=== PATIENT | female | born 1935 | race Caucasian/White ===

== ENCOUNTER 2020-01-13 17:46 | Emergency (ER) | payer MEDICARE, BC ==
[2020-01-13] MEDS ORDERED: Sodium Chloride 0.9% 1,000 ML IV ONE (18:28)
[2020-01-13] MEDS ORDERED: Sodium Chloride 0.9% 10 ML Syringe FLUSH PRN (18:28)
--- NOTE | 2020-01-13 18:36 | EDM.PDOC ---
ED HPI GENERAL MEDICAL PROBLEM - General Chief Complaint: Behavioral/Psych Stated Complaint: DIABETIC COMPLAINT Time Seen by Provider: 01/13/20 18:08 Source of Information: Reports: Patient, Family (daughter), RN Notes Reviewed History Limitations: Reports: No Limitations - History of Present Illness INITIAL COMMENTS - FREE TEXT/NARRATIVE: Patient is an 84-year-old female who is brought into the ED by her daughter for the evaluation of a few different complaints. The patient thought that she was having a blood sugar issue. Apparently she was found outside her house, by her neighbors. Patient states she was sitting outside because there is people in her house and she is afraid of them, so she has been staying in her garage. The daughter did go into the house to check to see if there is anyone in the house, and she states there was no one there. The daughter notes that the patient's never had issues with this before, with any sort of hallucinations or otherwise. She has no psych history. The daughter notes that they talked on Sunday, and everything seemed to be fine, but she was having these nightmares, the daughter is wondering if it is not the nightmares coming to life for the patient. The patient notes that this is been going on for the last couple days. She is diabetic that takes insulin, has not been taking her diabetic medications. Blood sugar is 138 at time of triage. Patient states she is seeing things that are not there, she states there are men in her house. She states that they talk to her, but she cannot specifically tell me what they are saying to her. She does become a little bit agitated when she is told that there is no one there. Patient herself states that the police were at her house, and arrested some people and put them in alf but she was not sure how long they would be there. She is denying any fevers or chills, cough/shortness of breath, dysuria, frequency or urgency. She is not having any nausea vomiting or diarrhea. She denies any falls at this time. The daughter also stated that when she checked her mother's house, that it looked like a tornado had gone through it. She states it was not like that this weekend. - Related Data Allergies Allergy/AdvReac Type Severity Reaction Status Date / Time No Known Allergies Allergy Verified 01/13/20 18:07 Past Medical History HEENT History: Reports: Impaired Vision Endocrine/Metabolic History: Reports: Diabetes, Type I Social & Family History - Tobacco Use Smoking Status *Q: Never Smoker ED ROS GENERAL - Review of Systems Review Of Systems: Comprehensive ROS is negative, except as noted in HPI. - Physical Exam Exam: See Below Exam Limited By: No Limitations General Appearance: Alert, WD/WN, No Apparent Distress Eye Exam: Bilateral Eye: EOMI, Normal Inspection, PERRL Throat/Mouth: Normal Inspection Head Exam: Atraumatic Neck: Normal Inspection Respiratory/Chest: No Respiratory Distress, Lungs Clear, Normal Breath Sounds, No Accessory Muscle Use, Chest Non-Tender Cardiovascular: Normal Peripheral Pulses, Regular Rate, Rhythm, No Murmur GI/Abdominal: Normal Bowel Sounds, Soft, No Distention, No Mass, Tender (suprapubid tenderness mainly) Neuro Exam (Abbreviated): Alert, Oriented (to person/place/time), No Mot or/Sensory Deficits Back Exam: Normal Inspection, Full Range of Motion Extremities: Normal Inspection, Normal Capillary Refill Psychiatric: Normal Affect, Normal Mood, Other (pt does talk about how there are people in her house that she is afraid of; she states that she has not been eating/drinking or taking medications d/t the people in her house. States that they are men, but could not tell me what they were telling her.) Skin Exam: Warm, Dry, Intact, Normal Color, No Rash EKG INTERPRETATION EKG Date: 01/13/20 Time: 18:33 Rhythm: NSR (sinus tach) Rate (Beats/Min): 108 [place]: Normal P-Wave: Present QRS: Normal ST-T: Normal QT: Normal EKG Interpretation Comments: No obvious ischemia or acute ST changes noted, reviewed by myself and Dr. Wallace. Course - Vital Signs Last Recorded V/S: Last Vital Signs Temp 97.2 F 01/13/20 18:03 Pulse 109 H 01/13/20 18:03 Resp 16 01/13/20 18:03 BP 161/92 H 01/13/20 18:03 Pulse Ox 91 L 01/13/20 18:03 - Orders/Labs/Meds Orders: Active Orders 24 hr Category Date Time Status EKG Documentation Completion [RC] STAT Care 01/13/20 18:25 Active Peripheral IV Care [RC] . DIRECTED Care 01/13/20 18:28 Active ACETAMINOPHEN [CHEM] Stat Lab 01/13/20 18:35 Results COMPREHENSIVE METABOLIC PN,CMP [CHEM] Stat Lab 01/13/20 18:35 Results DRUG SCREEN, URINE [URCHEM] Stat Lab 01/13/20 18:25 Ordered ETHANOL BLOOD MEDICAL [CHEM] Stat Lab 01/13/20 18:35 Results OSMOLALITY,SERUM [CHEM] Stat Lab 01/13/20 18:35 Results TSH [CHEM] Stat Lab 01/13/20 18:35 Results UA W/MICROSCOPIC [URIN] Stat Lab 01/13/20 18:27 Ordered Sodium Chloride 0.9% [Saline Flush] Med 01/13/20 18:28 Active 10 ml FLUSH ASDIRECTED PRN Peripheral IV Insertion Adult [OM.PC] Routine Oth 01/13/20 18:28 Ordered Medication Orders Sodium Chloride (Saline Flush) 10 ml FLUSH ASDIRECTED PRN PRN Reason: Keep Vein Open Last Admin: 01/13/20 18:47 Dose: 10 ml Documented by: WANDA Labs: Laboratory Tests 01/13/20 01/13/20 01/13/20 Range/Units 18:01 18:35 18:35 WBC 12.12 H (3.98-10.04) K/mm3 RBC 5.06 (3.98-5.22) M/mm3 Hgb 14.8 (11.2-15.7) gm/dl Hct 44.6 (34.1-44.9) % MCV 88.1 (79.4-94.8) fl MCH 29.2 (25.6-32.2) pg MCHC 33.2 (32.2-35.5) g/dl RDW Std Deviation 44.0 (36.4-46.3) fL Plt Count 307 (182-369) K/mm3 MPV 9.0 L (9.4-12.3) fl Neutrophils % (Manual) 87 H (40-60) % Band Neutrophils % 0 (0-10) % Lymphocytes % (Manual) 11 L (20-40) % Atypical Lymphs % 0 % Monocytes % (Manual) 1 L (2-10) % Eosinophils % (Manual) 1 (0.7-5.8) % Basophils % (Manual) 0 L (0.1-1.2) Platelet Estimate Adequate Poikilocytosis 1+ slight Ovalocytes 1+ slight RBC Morph Comment Not Reportable Sodium 139 (136-145) mEq/L Potassium 3.9 (3.5-5.1) mEq/L Chloride 102 (98-107) mEq/L Carbon Dioxide 24 (21-32) mEq/L Anion Gap 16.9 H (5-15) BUN 32 H (7-18) mg/dL Creatinine 1.4 H (0.55-1.02) mg/dL Est Cr Clr Drug Dosing 26.92 mL/min Estimated GFR (MDRD) 36 (>60) mL/min BUN/Creatinine Ratio 22.9 H (14-18) Glucose 138 H (83-115) mg/dL POC Glucose 138 H (83-110) mg/dL Calcium 9.0 (8.5-10.1) mg/dL Total Bilirubin 2.0 H (0.2-1.0) mg/dL AST 38 H (15-37) U/L ALT 29 (14-59) U/L Alkaline Phosphatase 79 (46-116) U/L Total Protein 7.1 (6.4-8.2) g/dl Albumin 3.9 (3.4-5.0) g/dl Globulin 3.2 gm/dL Albumin/Globulin Ratio 1.2 (1-2) TSH 3rd Generation 3.003 (0.358-3.74) uIU/mL Salicylates (2.8-20) mg/dL Acetaminophen 0 L (10-30) ug/mL Ethyl Alcohol 0.00 (0.00) gm% 01/13/20 Range/Units 18:35 WBC (3.98-10.04) K/mm3 RBC (3.98-5.22) M/mm3 Hgb (11.2-15.7) gm/dl Hct (34.1-44.9) % MCV (79.4-94.8) fl MCH (25.6-32.2) pg MCHC (32.2-35.5) g/dl RDW Std Deviation (36.4-46.3) fL Plt Count (182-369) K/mm3 MPV (9.4-12.3) fl Neutrophils % (Manual) (40-60) % Band Neutrophils % (0-10) % Lymphocytes % (Manual) (20-40) % Atypical Lymphs % % Monocytes % (Manual) (2-10) % Eosinophils % (Manual) (0.7-5.8) % Basophils % (Manual) (0.1-1.2) Platelet Estimate Poikilocytosis Ovalocytes RBC Morph Comment Sodium (136-145) mEq/L Potassium (3.5-5.1) mEq/L Chloride (98-107) mEq/L Carbon Dioxide (21-32) mEq/L Anion Gap (5-15) BUN (7-18) mg/dL Creatinine (0.55-1.02) mg/dL Est Cr Clr Drug Dosing mL/min Estimated GFR (MDRD) (>60) mL/min BUN/Creatinine Ratio (14-18) Glucose (83-115) mg/dL POC Glucose (83-110) mg/dL Calcium (8.5-10.1) mg/dL Total Bilirubin (0.2-1.0) mg/dL AST (15-37) U/L ALT (14-59) U/L Alkaline Phosphatase (46-116) U/L Total Protein (6.4-8.2) g/dl Albumin (3.4-5.0) g/dl Globulin gm/dL Albumin/Globulin Ratio (1-2) TSH 3rd Generation (0.358-3.74) uIU/mL Salicylates < 0.2 L (2.8-20) mg/dL Acetaminophen (10-30) ug/mL Ethyl Alcohol (0.00) gm% Meds: Medications Generic Name Dose Route Start Last Admin Trade Name Freq PRN Reason Stop Dose Admin Sodium Chloride 10 ml 01/13/20 18:28 01/13/20 18:47 Saline Flush FLUSH 10 ml ASDIRECTED PRN Administration Keep Vein Open Discontinued Medications Generic Name Dose Route Start Last Admin Trade Name Freq PRN Reason Stop Dose Admin Sodium Chloride 1,000 mls @ 999 mls/hr 01/13/20 18:28 01/13/20 18:46 Normal Saline IV 01/13/20 19:28 999 mls/hr ONETIME ONE Administration Lorazepam 1 mg 01/13/20 20:00 01/13/20 20:19 Ativan IVPUSH 01/13/20 20:01 1 mg ONETIME ONE Administration Risperidone 0.5 mg 01/13/20 20:39 Risperidal PO 01/13/20 20:40 ONETIME ONE - Re-Assessments/Exams Free Text/Narrative Re-Assessment/Exam: 01/13/20 18:38 Patient presents to the ED for the evaluation of her hallucinations. This is new etiology for the patient, I question whether or not this is a metabolic issue. Extensive work-up has been ordered to include labs, head CT urinalysis, and some IV fluids at this time. Departure - Departure Time of Disposition: 20:43 Disposition: Home, Self-Care 01 Condition: Good Clinical Impression: Hallucinations - Discharge Information *PRESCRIPTION DRUG MONITORING PROGRAM REVIEWED*: No *COPY OF PRESCRIPTION DRUG MONITORING REPORT IN PATIENT JAIRO: No Referrals: Uzma Del Castillo SALES DEVELOPMENT SPECIALIST [Primary Care Provider] - Forms: ED Department Discharge Additional Instructions: You were evaluated in the ER today regarding the hallucinations at your house. Extensive work-up was done at today's visit, there are no metabolic abnormalities appreciated on the lab work. Head CT was also negative for any lesions or etiology of these hallucinations. We did not obtain a urinalysis, she still could have a UTI causing these issues. Recommend you follow-up with your primary care provider, Jaymie Del Castillo for an appointment tomorrow. You were given a medication called risperidone, please give 1 tab at night for these hallucinations. You may try to give this to her crushed in food, if she is adverse to taking the medication by pill. Please return to the ER at any time if symptoms change or worsen. Sepsis Event Note (ED) - Evaluation Sepsis Screening Result: No Definite Risk - Focused Exam Vital Signs: Vital Signs Temp Pulse Resp BP Pulse Ox 01/13/20 18:03 97.2 F 109 H 16 161/92 H 91 L - My Orders Last 24 Hours: My Active Orders 01/13/20 18:25 EKG Documentation Completion [RC] STAT DRUG SCREEN, URINE [URCHEM] Stat 01/13/20 18:27 UA W/MICROSCOPIC [URIN] Stat 01/13/20 18:28 Peripheral IV Care [RC] . DIRECTED Sodium Chloride 0.9% [Saline Flush] 10 ml FLUSH ASDIRECTED PRN Peripheral IV Insertion Adult [OM.PC] Routine 01/13/20 18:35 ACETAMINOPHEN [CHEM] Stat COMPREHENSIVE METABOLIC PN,CMP [CHEM] Stat ETHANOL BLOOD MEDICAL [CHEM] Stat OSMOLALITY,SERUM [CHEM] Stat TSH [CHEM] Stat - Assessment/Plan Last 24 Hours: My Active Orders 01/13/20 18:25 EKG Documentation Completion [RC] STAT DRUG SCREEN, URINE [URCHEM] Stat 01/13/20 18:27 UA W/MICROSCOPIC [URIN] Stat 01/13/20 18:28 Peripheral IV Care [RC] . DIRECTED Sodium Chloride 0.9% [Saline Flush] 10 ml FLUSH ASDIRECTED PRN Peripheral IV Insertion Adult [OM.PC] Routine 01/13/20 18:35 ACETAMINOPHEN [CHEM] Stat COMPREHENSIVE METABOLIC PN,CMP [CHEM] Stat ETHANOL BLOOD MEDICAL [CHEM] Stat OSMOLALITY,SERUM [CHEM] Stat TSH [CHEM] Stat
--- NOTE | 2020-01-13 19:27 | CT ---
Head CT Technique: Multiple axial sections through the brain were obtained. Intravenous contrast was not utilized. Comparison: No prior study. 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 Ventricles along with basal cisterns and sulci over convexities are mildly prominent. Minimal areas of scattered diminished density are seen within the periventricular white matter which is most likely due to small vessel ischemic demyelination change. No other abnormal parenchymal densities are seen. No evidence of intracranial hemorrhage. No midline shift or mass effect is seen. Bone window settings were reviewed. No acute calvarial finding is seen. Visualized paranasal sinuses and mastoid sinuses appear clear. Impression: 1. Mild senescent change as described above. 2. No acute intracranial abnormality is appreciated. Diagnostic code #2 Study was dictated in MDT
[2020-01-13] MEDS ORDERED: LORazepam 2 MG/ML SDV IVPUSH ONE (20:00)
[2020-01-13] MEDS ORDERED: risperiDONE 0.5 MG Tab PO ONE (20:39)
== END 2020-01-13 20:57 | disposition home or self-care (01) ==
LOC: JD.ED 17:46
DX: R44.3 Hallucinations, unspecified (principal); E10.9 Type 1 diabetes mellitus without complications
CPT/HCPCS: 36415; 70450; 80053; 80307; 82962; 83930; 84443; 85007; 85027; 93005; 96374; 99285; A9270; J2060; J7030; 93010; 99284

== ENCOUNTER 2020-03-16 13:55 | Inpatient (IN) | payer MEDICARE, BC ==
--- NOTE | 2020-03-16 14:56 | EDM.PDOC ---
ED HPI GENERAL MEDICAL PROBLEM - General Chief Complaint: Behavioral/Psych Stated Complaint: [facility] Time Seen by Provider: 03/16/20 14:48 - History of Present Illness INITIAL COMMENTS - FREE TEXT/NARRATIVE: 84-year-old female brought in by the [facility] from the sn[facility]. The patient has been having some behavior problems at the snf. Today she was swinging her purse at residents and staff. The patient spent about 3 weeks in the hospital at [facility] in [place] was discharged the middle last month after being diagnosed with atrial fibrillation and some psychiatric issues she was discharged on amiodarone and Seroquel. The Seroquel was tapered off because of potential reaction with the amiodarone and she was started on mirtazapine. However this was DC'd because of poor results the patient was having significant hallucinations with this. Today the patient has not been acting right and has been aggressive towards the staff and other residents. At this time in the time my evaluation the patient is answering questions appropriately. She has some vague memories of what she calls a dreams of people trying to hurt her and possibly other family members. And she did voice visions like this to staff at the snf. Patient denies any suicidal wishes or thoughts at this time. Treatments CORRECTION OFFICER HEAD: Reports: Other Medication(s) - Related Data Allergies Allergy/AdvReac Type Severity Reaction Status Date / Time No Known Allergies Allergy Verified 03/16/20 14:07 Home Meds: Home Meds Amiodarone [Cordarone] 200 mg PO DAILY 03/16/20 [History] Amoxicillin/Clavulanate K [Augmentin 500-125 MG] 1 tab PO BID 03/16/20 [History] Apixaban [Eliquis] 2.5 mg PO BID 03/16/20 [History] LORazepam [Ativan ORAL Concentrate 1MG/0.5 ML U/D] 0.5 mg PO Q3HR PRN 03/16/20 [History] Potassium Chloride 20 mg PO TID 03/16/20 [History] metFORMIN [Glucophage] 500 mg PO BID 03/16/20 [History] Past Medical History HEENT History: Reports: Impaired Vision Cardiovascular History: Reports: Afib, Hypertension, Other (See Below) Other Cardiovascular History: hypokalemia Genitourinary History: Reports: UTI, 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 LOCOMOTIVE History: Reports: Psychiatric History: Reports: Dementia, Hallucinations, Psychosis Endocrine/Metabolic History: Reports: Diabetes, Type II Dermatologic History: Reports: Decubitus Ulcer, Other (See Below) Other Dermatologic History: ulcer on coccyx Social & Family History - Family History Family Medical History: Noncontributory - Tobacco Use Tobacco Use Status *Q: Never Tobacco User - Caffeine Use Caffeine Use: Reports: Coffee, Tea - Recreational Drug Use Recreational Drug Use: No ED ROS GENERAL - Review of Systems Review Of Systems: See Below Constitutional: Reports: No Symptoms HEENT: Reports: No Symptoms Respiratory: Reports: No Symptoms Cardiovascular: Reports: No Symptoms GI/Abdominal: Reports: No Symptoms : Reports: No Symptoms Musculoskeletal: Reports: No Symptoms Skin: Reports: No Symptoms Neurological: Reports: Confusion. Denies: No Symptoms Psychiatric: Reports: Confusion, Hallucinations. Denies: Suicidal Ideation ED EXAM, GENERAL - Physical Exam Exam: See Below Exam Limited By: No Limitations General Appearance: Alert, No Apparent Distress Ears: Normal External Exam, Normal Canal, Hearing Grossly Normal, Normal TMs Nose: Normal Inspection, Normal Mucosa, No Blood Throat/Mouth: Normal Inspection, Normal Lips, Normal Gums, Normal Oropharynx, Normal Voice, No Airway Compromise Head: Atraumatic, Normocephalic Neck: Normal Inspection, Supple, Non-Tender, Full Range of Motion. No: Lymphadenopathy (L), Lymphadenopathy (R) Respiratory/Chest: No Respiratory Distress, Lungs Clear, Normal Breath Sounds Cardiovascular: Regular Rate, Rhythm, No Edema, No Murmur GI/Abdominal: Normal Bowel Sounds, Soft, Non-Tender Back Exam: Normal Inspection. No: CVA Tenderness (L), CVA Tenderness (R) Extremities: Normal Inspection, No Pedal Edema Course - Vital Signs Last Recorded V/S: Last Vital Signs Temp 36.0 C L 03/16/20 13:59 Pulse 95 03/16/20 13:59 Resp 15 03/16/20 13:59 BP 128/70 03/16/20 13:59 Pulse Ox 95 03/16/20 13:59 - Orders/Labs/Meds Orders: Active Orders 24 hr Category Date Time Status EKG Documentation Completion [RC] STAT Care 03/16/20 16:06 Active Chest 1V Frontal [CR] Stat Exams 03/16/20 16:07 Taken Head wo Cont [CT] Stat Exams 03/16/20 16:07 Taken CULTURE URINE [RM] Stat Lab 03/16/20 16:15 Received Piperacillin/Tazobactam 4.5 GM - First Dose Med 03/16/20 19:43 Ordered Piperacillin/Tazobactam [Piperacil-Tazobact] 4.5 gm Sodium Chloride 0.9% [Normal Saline] 100 ml IV ONETIME Sodium Chloride 0.9% @ 100 MLS/HR(1000ml Bag) Med 03/16/20 19:45 Ordered Sodium Chloride 0.9% [Normal Saline] 1,000 ml IV ASDIRECTED Medication Orders Piperacillin Sod/Tazobactam (Sod 4.5 gm/ Sodium Chloride) 100 mls @ 200 mls/hr IV ONETIME ONE Stop: 03/16/20 20:12 Sodium Chloride (Normal Saline) 1,000 mls @ 100 mls/hr IV ASDIRECTED [facility] Labs: Laboratory Tests 03/16/20 03/16/20 03/16/20 Range/Units 14:00 14:00 14:00 WBC 6.02 (3.98-10.04) K/mm3 RBC 4.34 (3.98-5.22) M/mm3 Hgb 12.7 D (11.2-15.7) gm/dl Hct 40.6 (34.1-44.9) % MCV 93.5 D (79.4-94.8) fl MCH 29.3 (25.6-32.2) pg MCHC 31.3 L (32.2-35.5) g/dl RDW Std Deviation 58.2 H (36.4-46.3) fL Plt Count 345 (182-369) K/mm3 MPV 9.2 L (9.4-12.3) fl Neut % (Auto) 81.3 H (34.0-71.1) % Lymph % (Auto) 11.5 L (19.3-51.7) % [place] % (Auto) 5.6 (4.7-12.5) % Eos % (Auto) 0.7 (0.7-5.8) Baso % (Auto) 0.7 (0.1-1.2) % Neut # (Auto) 4.90 (1.56-6.13) K/mm3 Lymph # (Auto) 0.69 L (1.18-3.74) K/mm3 [place] # (Auto) 0.34 (0.24-0.36) K/mm3 Eos # (Auto) 0.04 (0.04-0.36) K/mm3 Baso # (Auto) 0.04 (0.01-0.08) K/mm3 PT 12.0 H (9.7-11.7) SECONDS INR 1.12 Sodium 137 (136-145) mEq/L Potassium 5.3 H (3.5-5.1) mEq/L Chloride 102 (98-107) mEq/L Carbon Dioxide 21 (21-32) mEq/L Anion Gap 19.3 H (5-15) BUN 13 (7-18) mg/dL Creatinine 1.3 H (0.55-1.02) mg/dL Est Cr Clr Drug Dosing TNP Estimated GFR (MDRD) 39 (>60) mL/min BUN/Creatinine Ratio 10.0 L (14-18) Glucose 112 (83-115) mg/dL Calcium 8.5 (8.5-10.1) mg/dL Total Bilirubin 1.0 (0.2-1.0) mg/dL AST 15 (15-37) U/L ALT 20 (14-59) U/L Alkaline Phosphatase 72 (46-116) U/L Total Protein 6.6 (6.4-8.2) g/dl Albumin 3.3 L (3.4-5.0) g/dl Globulin 3.3 gm/dL Albumin/Globulin Ratio 1.0 (1-2) Urine Color (Yellow) Urine Appearance (Clear) Urine pH (5.0-8.0) Ur Specific [place] (1.005-1.030) Urine Protein (Negative) Urine Glucose (UA) (Negative) Urine Ketones (Negative) Urine Occult Blood (Negative) Urine Nitrite (Negative) Urine Bilirubin (Negative) Urine Urobilinogen (0.2-1.0) Ur Leukocyte Esterase (Negative) Urine RBC (0-5) /hpf Urine WBC (0-5) /hpf Ur Squamous Epith Cells (0-5) /hpf Urine Bacteria (FEW) /hpf Urine Mucus (FEW) /hpf 03/16/20 Range/Units 16:15 WBC (3.98-10.04) K/mm3 RBC (3.98-5.22) M/mm3 Hgb (11.2-15.7) gm/dl Hct (34.1-44.9) % MCV (79.4-94.8) fl MCH (25.6-32.2) pg MCHC (32.2-35.5) g/dl RDW Std Deviation (36.4-46.3) fL Plt Count (182-369) K/mm3 MPV (9.4-12.3) fl Neut % (Auto) (34.0-71.1) % Lymph % (Auto) (19.3-51.7) % [place] % (Auto) (4.7-12.5) % Eos % (Auto) (0.7-5.8) Baso % (Auto) (0.1-1.2) % Neut # (Auto) (1.56-6.13) K/mm3 Lymph # (Auto) (1.18-3.74) K/mm3 [place] # (Auto) (0.24-0.36) K/mm3 Eos # (Auto) (0.04-0.36) K/mm3 Baso # (Auto) (0.01-0.08) K/mm3 PT (9.7-11.7) SECONDS INR Sodium (136-145) mEq/L Potassium (3.5-5.1) mEq/L Chloride (98-107) mEq/L Carbon Dioxide (21-32) mEq/L Anion Gap (5-15) BUN (7-18) mg/dL Creatinine (0.55-1.02) mg/dL Est Cr Clr Drug Dosing Estimated GFR (MDRD) (>60) mL/min BUN/Creatinine Ratio (14-18) Glucose (83-115) mg/dL Calcium (8.5-10.1) mg/dL Total Bilirubin (0.2-1.0) mg/dL AST (15-37) U/L ALT (14-59) U/L Alkaline Phosphatase (46-116) U/L Total Protein (6.4-8.2) g/dl Albumin (3.4-5.0) g/dl Globulin gm/dL Albumin/Globulin Ratio (1-2) Urine Color Yellow (Yellow) Urine Appearance Cloudy H (Clear) Urine pH 5.5 (5.0-8.0) Ur Specific [place] > or = 1.030 (1.005-1.030) Urine Protein Trace H (Negative) Urine Glucose (UA) Negative (Negative) Urine Ketones 1+ H (Negative) Urine Occult Blood 1+ H (Negative) Urine Nitrite Negative (Negative) Urine Bilirubin 1+ H (Negative) Urine Urobilinogen 0.2 (0.2-1.0) Ur Leukocyte Esterase 3+ H (Negative) Urine RBC 5-10 H (0-5) /hpf Urine WBC Too numerous to cnt H (0-5) /hpf Ur Squamous Epith Cells Not seen (0-5) /hpf Urine Bacteria Not seen (FEW) /hpf Urine Mucus Not seen (FEW) /hpf Meds: Medications Generic Name Dose Route Start Last Admin Trade Name Freq PRN Reason Stop Dose Admin Piperacillin Sod/Tazobactam 100 mls @ 200 mls/hr 03/16/20 19:43 Sod 4.5 gm/ Sodium Chloride IV 03/16/20 20:12 ONETIME ONE Sodium Chloride 1,000 mls @ 100 mls/hr 03/16/20 19:45 Normal Saline IV ASDIRECTED LINDA Discontinued Medications Generic Name Dose Route Start Last Admin Trade Name Freq PRN Reason Stop Dose Admin Ceftriaxone Sodium 1 gm/ 100 mls @ 200 mls/hr 03/16/20 18:24 03/16/20 19:12 Sodium Chloride IV 03/16/20 18:53 200 mls/hr ONETIME ONE Administration - Re-Assessments/Exams Free Text/Narrative Re-Assessment/Exam: 03/16/20 19:46 Reviewing her labs it looks like she has a continued urinary tract infection. We did not get from the snf as apparently she is on oral Augmentin but only get about half the doses with the organism they are treating is not receptive to Rocephin and I dosed her with a gram of Rocephin already. And they will not take her back to the snf. At this point we do have a hospital bed here and Dr. Feliz is kind enough to accept the patient will start her on Zosyn assuming she has sensitivity to that as they are treating it with Augmentin. Case discussed with her daughter Tegan, who is in agreement to the plan. Departure - Departure Time of Disposition: 19:44 Disposition: Admitted As Inpatient 66 Clinical Impression: Urinary tract infection, Hallucinations - Discharge Information Referrals: Riley Pham MD [Primary Care Provider] - Forms: ED Department Discharge Sepsis Event Note (ED) - Evaluation Sepsis Screening Result: No Definite Risk - Focused Exam Vital Signs: Vital Signs Temp Pulse Resp BP Pulse Ox 03/16/20 13:59 36.0 C L 95 15 128/70 95 - My Orders Last 24 Hours: My Active Orders 03/16/20 16:06 EKG Documentation Completion [RC] STAT 03/16/20 16:07 Chest 1V Frontal [CR] Stat Head wo Cont [CT] Stat 03/16/20 16:15 CULTURE URINE [RM] Stat 03/16/20 19:43 Piperacillin/Tazobactam 4.5 GM - First Dose Piperacillin/Tazobactam [Piperacil- Tazobact] 4.5 gm Sodium Chloride 0.9% [Normal Saline] 100 ml IV ONETIME 03/16/20 19:45 Sodium Chloride 0.9% @ 100 MLS/HR(1000ml Bag) Sodium Chloride 0.9% [Normal Salin e] 1,000 ml IV ASDIRECTED - Assessment/Plan Last 24 Hours: My Active Orders 03/16/20 16:06 EKG Documentation Completion [RC] STAT 03/16/20 16:07 Chest 1V Frontal [CR] Stat Head wo Cont [CT] Stat 03/16/20 16:15 CULTURE URINE [RM] Stat 03/16/20 19:43 Piperacillin/Tazobactam 4.5 GM - First Dose Piperacillin/Tazobactam [Piperacil- Tazobact] 4.5 gm Sodium Chloride 0.9% [Normal Saline] 100 ml IV ONETIME 03/16/20 19:45 Sodium Chloride 0.9% @ 100 MLS/HR(1000ml Bag) Sodium Chloride 0.9% [Normal Saline] 1,000 ml IV ASDIRECTED
[2020-03-16] MEDS ORDERED: cefTRIAXone 1 GM in Sodium Chloride 0.9% 100 ML IV ONE (18:24)
[2020-03-16] MEDS ORDERED: Piperacillin/Tazobactam 4.5 GM in Sodium Chloride 0.9% 100 ML IV ONE (19:43)
[2020-03-16] MEDS: Sodium Chloride 0.9% 1,000 ML IV SCH (20:00)
[2020-03-16] MEDS ORDERED: Haloperidol Lactate 5 MG/ML SDV ONE (22:47)
[2020-03-16] MEDS ORDERED: Haloperidol Lactate 5 MG/ML SDV IM STA (22:50)
[2020-03-17] MEDS: Sodium Chloride 0.9% 1,000 ML IV SCH ×2 (03:47→13:37)
[2020-03-17] MEDS: Piperacillin/Tazobactam 4.5 GM in Sodium Chloride 0.9% 100 ML IV SCH ×3 (03:49→20:44)
--- NOTE | 2020-03-17 06:41 | PCM.HP.2 ---
H&P History of Present Illness - General Admit Problem/Dx: Admission Diagnosis/Problem Admission Diagnosis/Problem Urinary tract infection - Related Data Allergies/Adverse Reactions: Allergies Allergy/AdvReac Type Severity Reaction Status Date / Time No Known Allergies Allergy Verified 03/17/20 00:23 Home Medications: Home Meds Amiodarone [Cordarone] 200 mg PO DAILY 03/16/20 [History] Amoxicillin/Clavulanate K [Augmentin 500-125 MG] 1 tab PO BID 03/16/20 [History] Apixaban [Eliquis] 2.5 mg PO BID 03/16/20 [History] LORazepam [Ativan ORAL Concentrate 1MG/0.5 ML U/D] 0.5 mg SL Q3HR PRN 03/16/20 [ History] Potassium Chloride 20 mg PO TID 03/16/20 [History] metFORMIN [Glucophage] 500 mg PO BIDAC 03/16/20 [History] Past Medical History HEENT History: Reports: Impaired Vision Cardiovascular History: Reports: Afib, Hypertension Other Cardiovascular History: hypokalemia Genitourinary History: Reports: UTI, Recurrent, Other (See Below) Other Genitourinary History: kidney injury [employer] History: Reports: Neurological History: Reports: Other (See Below) Other Neuro History: dementia with behavioral distubances, cognitive impairment Psychiatric History: Reports: Dementia, Hallucinations, Psychosis Endocrine/Metabolic History: Reports: Diabetes, Type II, Hypokalemia Hematologic History: Reports: Other (See Below) Other Hematologic History: sepsis Dermatologic History: Reports: Cellulitis, Decubitus Ulcer, Other (See Below) Other Dermatologic History: pressure ulcer on coccyx Social & Family History - Family History Family Medical History: Noncontributory - Tobacco Use Tobacco Use Status *Q: Former Tobacco User Used Tobacco, but Quit: Yes Month/Year Tobacco Last Used: 9999 - Caffeine Use Caffeine Use: Reports: Coffee, Tea - Recreational Drug Use Recreational Drug Use: No Exam - Vital Signs Vital Signs: Last Vital Signs Temp 36.3 C 03/17/20 03:51 Pulse 71 03/17/20 03:51 Resp 12 03/17/20 00:11 BP 103/85 03/17/20 03:51 Pulse Ox 99 03/17/20 03:51 Weight: 51.301 kg - Patient Data Lab Results Last 24 hrs: Laboratory Results - last 24 hr 03/16/20 03/16/20 03/16/20 Range/Units 14:00 14:00 14:00 WBC 6.02 (3.98-10.04) K/mm3 RBC 4.34 (3.98-5.22) M/mm3 Hgb 12.7 D (11.2-15.7) gm/dl Hct 40.6 (34.1-44.9) % MCV 93.5 D (79.4-94.8) fl MCH 29.3 (25.6-32.2) pg MCHC 31.3 L (32.2-35.5) g/dl RDW Std Deviation 58.2 H (36.4-46.3) fL Plt Count 345 (182-369) K/mm3 MPV 9.2 L (9.4-12.3) fl Neut % (Auto) 81.3 H (34.0-71.1) % Lymph % (Auto) 11.5 L (19.3-51.7) % [place] % (Auto) 5.6 (4.7-12.5) % Eos % (Auto) 0.7 (0.7-5.8) Baso % (Auto) 0.7 (0.1-1.2) % Neut # (Auto) 4.90 (1.56-6.13) K/mm3 Lymph # (Auto) 0.69 L (1.18-3.74) K/mm3 [place] # (Auto) 0.34 (0.24-0.36) K/mm3 Eos # (Auto) 0.04 (0.04-0.36) K/mm3 Baso # (Auto) 0.04 (0.01-0.08) K/mm3 PT 12.0 H (9.7-11.7) SECONDS INR 1.12 Sodium 137 (136-145) mEq/L Potassium 5.3 H (3.5-5.1) mEq/L Chloride 102 (98-107) mEq/L Carbon Dioxide 21 (21-32) mEq/L Anion Gap 19.3 H (5-15) BUN 13 (7-18) mg/dL Creatinine 1.3 H (0.55-1.02) mg/dL Est Cr Clr Drug Dosing TNP Estimated GFR (MDRD) 39 (>60) mL/min BUN/Creatinine Ratio 10.0 L (14-18) Glucose 112 (83-115) mg/dL Calcium 8.5 (8.5-10.1) mg/dL Total Bilirubin 1.0 (0.2-1.0) mg/dL AST 15 (15-37) U/L ALT 20 (14-59) U/L Alkaline Phosphatase 72 (46-116) U/L Total Protein 6.6 (6.4-8.2) g/dl Albumin 3.3 L (3.4-5.0) g/dl Globulin 3.3 gm/dL Albumin/Globulin Ratio 1.0 (1-2) Urine Color (Yellow) Urine Appearance (Clear) Urine pH (5.0-8.0) Ur Specific [place] (1.005-1.030) Urine Protein (Negative) Urine Glucose (UA) (Negative) Urine Ketones (Negative) Urine Occult Blood (Negative) Urine Nitrite (Negative) Urine Bilirubin (Negative) Urine Urobilinogen (0.2-1.0) Ur Leukocyte Esterase (Negative) Urine RBC (0-5) /hpf Urine WBC (0-5) /hpf Ur Squamous Epith Cells (0-5) /hpf Urine Bacteria (FEW) /hpf Urine Mucus (FEW) /hpf SARS-CoV-2 RNA (BLANCA) (NEGATIVE) MRSA (PCR) 03/16/20 03/16/20 03/17/20 Range/Units 16:15 20:25 00:45 WBC (3.98-10.04) K/mm3 RBC (3.98-5.22) M/mm3 Hgb (11.2-15.7) gm/dl Hct (34.1-44.9) % MCV (79.4-94.8) fl MCH (25.6-32.2) pg MCHC (32.2-35.5) g/dl RDW Std Deviation (36.4-46.3) fL Plt Count (182-369) K/mm3 MPV (9.4-12.3) fl Neut % (Auto) (34.0-71.1) % Lymph % (Auto) (19.3-51.7) % [place] % (Auto) (4.7-12.5) % Eos % (Auto) (0.7-5.8) Baso % (Auto) (0.1-1.2) % Neut # (Auto) (1.56-6.13) K/mm3 Lymph # (Auto) (1.18-3.74) K/mm3 [place] # (Auto) (0.24-0.36) K/mm3 Eos # (Auto) (0.04-0.36) K/mm3 Baso # (Auto) (0.01-0.08) K/mm3 PT (9.7-11.7) SECONDS INR Sodium (136-145) mEq/L Potassium (3.5-5.1) mEq/L Chloride (98-107) mEq/L Carbon Dioxide (21-32) mEq/L Anion Gap (5-15) BUN (7-18) mg/dL Creatinine (0.55-1.02) mg/dL Est Cr Clr Drug Dosing Estimated GFR (MDRD) (>60) mL/min BUN/Creatinine Ratio (14-18) Glucose (83-115) mg/dL Calcium (8.5-10.1) mg/dL Total Bilirubin (0.2-1.0) mg/dL AST (15-37) U/L ALT (14-59) U/L Alkaline Phosphatase (46-116) U/L Total Protein (6.4-8.2) g/dl Albumin (3.4-5.0) g/dl Globulin gm/dL Albumin/Globulin Ratio (1-2) Urine Color Yellow (Yellow) Urine Appearance Cloudy H (Clear) Urine pH 5.5 (5.0-8.0) Ur Specific [place] > or = 1.030 (1.005-1.030) Urine Protein Trace H (Negative) Urine Glucose (UA) Negative (Negative) Urine Ketones 1+ H (Negative) Urine Occult Blood 1+ H (Negative) Urine Nitrite Negative (Negative) Urine Bilirubin 1+ H (Negative) Urine Urobilinogen 0.2 (0.2-1.0) Ur Leukocyte Esterase 3+ H (Negative) Urine RBC 5-10 H (0-5) /hpf Urine WBC Too numerous to cnt H (0-5) /hpf Ur Squamous Epith Cells Not seen (0-5) /hpf Urine Bacteria Not seen (FEW) /hpf Urine Mucus Not seen (FEW) /hpf SARS-CoV-2 RNA (BLANCA) Negative (NEGATIVE) MRSA (PCR) Negative Result Diagrams: 03/16/20 14:00 03/16/20 14:00 Sepsis Event Note - Evaluation Sepsis Screening Result: No Definite Risk - Focused Exam Vital Signs: Vital Signs Temp Temp Pulse Pulse Resp BP BP 03/17/20 03:51 36.3 C 71 103/85 03/17/20 00:11 36.4 C 77 12 112/54 L 03/17/20 00:09 36.4 C 77 12 112/54 L Pulse Ox 03/17/20 03:51 99 03/17/20 00:11 97 03/17/20 00:09 97 Orders Last 24hrs: Active Orders 24 hr Category Date Time Status Patient Status [ADT] Routine ADT 03/16/20 20:55 Active Up With Assistance [RC] BID Care 03/17/20 00:18 Active National Dysphagia Diet [DIET] Diet 03/17/20 Breakfast Active Chest 1V Frontal [CR] Stat Exams 03/16/20 16:07 Taken Head wo Cont [CT] Stat Exams 03/16/20 16:07 Taken BASIC METABOLIC PANEL,BMP [CHEM] Routine Lab 03/17/20 06:00 Ordered CULTURE URINE [RM] Stat Lab 03/16/20 16:15 Received Piperacillin/Tazobactam [Piperacil-Tazobact] 4.5 gm Med 03/17/20 04:00 Active Sodium Chloride 0.9% [Normal Saline] 100 ml IV Q8H Sodium Chloride 0.9% [Normal Saline] 1,000 ml Med 03/16/20 19:45 Active IV ASDIRECTED Code Status [Resuscitation Status] Routine Resus Stat 03/17/20 00:18 Ordered Medication Orders Sodium Chloride (Normal Saline) 1,000 mls @ 100 mls/hr IV ASDIRECTED LINDA Last Admin: 03/17/20 03:47 Dose: 100 mls/hr Documented by: Infusion: 03/17/20 03:47 Dose: 100 mls/hr Documented by: Admin: 03/16/20 20:00 Dose: 100 mls/hr Documented by: RUSSEL Piperacillin Sod/Tazobactam (Sod 4.5 gm/ Sodium Chloride) 100 mls @ 25 mls/hr IV Q8H LINDA Last Admin: 03/17/20 03:49 Dose: 25 mls/hr Documented by: MEGGAN
[2020-03-17] MEDS: Amiodarone 200 MG Tab PO SCH (09:09)
[2020-03-17] MEDS: Apixaban 2.5 MG Tab PO SCH ×3 (09:09→20:45)
--- NOTE | 2020-03-17 13:25 | PCM.HP.2 ---
<Redd Escobar M - Last Filed: 03/17/20 13:58> H&P History of Present Illness - General Date of Service: 03/17/20 Admit Problem/Dx: Admission Diagnosis/Problem Admission Diagnosis/Problem Urinary tract infection Source of Information: Assisted Records, Provider, RN History Limitations: Reports: Altered Mental Status - History of Present Illness Initial Comments - Free Text/Narative: 84-year-old female brought in by the [facility] from the half-way. The patient has been having some behavior problems at the half-way. Today she was swinging her purse at residents and staff. The patient spent about 3 weeks in the hospital at [facility] in [place] was discharged the middle last month after being diagnosed with atrial fibrillation and some psychiatric issues she was discharged on amiodarone and Seroquel. The Seroquel was tapered off because of potential reaction with the amiodarone and she was started on mirtazapine. However this was DC'd because of poor results the patient was having significant hallucinations with this. Today the patient has not been acting right and has been aggressive towards the staff and other residents. At this time in the time my evaluation the patient is answering questions appropriately. She has some vague memories of what she calls a dreams of people trying to hurt her and possibly other family members. And she did voice visions like this to staff at the half-way. Patient denies any suicidal wishes or thoughts at this time. 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: Other Medication(s) - Related Data Allergies/Adverse Reactions: Allergies Allergy/AdvReac Type Severity Reaction Status Date / Time No Known Allergies Allergy Verified 03/17/20 00:23 Home Medications: Home Meds Amiodarone [Cordarone] 200 mg PO DAILY 03/16/20 [History] Amoxicillin/Clavulanate K [Augmentin 500-125 MG] 1 tab PO BID 03/16/20 [History] Apixaban [Eliquis] 2.5 mg PO BID 03/16/20 [History] LORazepam [Ativan ORAL Concentrate 1MG/0.5 ML U/D] 0.5 mg SL Q3HR PRN 03/16/20 [History] Potassium Chloride 20 mg PO TID 03/16/20 [History] metFORMIN [Glucophage] 500 mg PO BIDAC 03/16/20 [History] Past Medical History HEENT History: Reports: Impaired Vision Cardiovascular History: Reports: Afib, Hypertension Other Cardiovascular History: hypokalemia Genitourinary History: Reports: UTI, Recurrent, Other (See Below) Other Genitourinary History: kidney injury MACHINE INSPECTOR History: 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: Neurological History: Reports: Other (See Below) Other Neuro History: dementia with behavioral distubances, cognitive impairment Psychiatric History: Reports: Dementia, Hallucinations, Psychosis Endocrine/Metabolic History: Reports: Diabetes, Type II, Hypokalemia Hematologic History: Reports: Other (See Below) Other Hematologic History: sepsis Dermatologic History: Reports: Cellulitis, Decubitus Ulcer, Other (See Below) Other Dermatologic History: pressure ulcer on coccyx Social & Family History - Family History Family Medical History: Noncontributory - Tobacco Use Tobacco Use Status *Q: Former Tobacco User Used Tobacco, but Quit: Yes Month/Year Tobacco Last Used: 9999 - Caffeine Use Caffeine Use: Reports: Coffee, Tea - Recreational Drug Use Recreational Drug Use: No H&P Review of Systems - Review of Systems: Review Of Systems: See Below General: Reports: No Symptoms HEENT: Reports: No Symptoms Pulmonary: Reports: No Symptoms Cardiovascular: Reports: No Symptoms Gastrointestinal: Reports: No Symptoms Genitourinary: Reports: No Symptoms Musculoskeletal: Reports: No Symptoms Skin: Reports: No Symptoms Psychiatric: Reports: Confusion, Agitation Neurological: Reports: Confusion Hematologic/Lymphatic: Reports: No Symptoms Immunologic: Reports: No Symptoms Exam - Exam Exam: See Below - Vital Signs Vital Signs: Last Vital Signs Temp 97.9 F 03/17/20 11:39 Pulse 71 03/17/20 11:39 Resp 14 03/17/20 11:39 BP 96/49 L 03/17/20 11:39 Pulse Ox 98 03/17/20 11:39 Weight: 51.301 kg - Exam Quality Assessment: DVT Prophylaxis (takes eliquis). No: Supplemental Oxygen General: Cooperative, Lethargic (pt received haldol last evening) HEENT: Conjunctiva Clear, Hearing Intact, Mucosa Moist & [place] Neck: Supple, Trachea Midline. No: Lymphadenopathy Lungs: Clear to Auscultation, Normal Respiratory Effort, Decreased Breath Sounds Cardiovascular: Regular Rate, Regular Rhythm GI/Abdominal Exam: Normal Bowel Sounds, Soft, Non-Tender, No Distention (Female) Exam: Deferred Rectal (Female) Exam: Deferred Back Exam: Normal Inspection, Full Range of Motion Extremities: Normal Inspection, Normal Range of Motion, Non-Tender, No Pedal Edema, Normal Capillary Refill Peripheral Pulses: 2+: Radial (L), Radial (R), Dorsalis Pedis (L), Dorsalis Pedis (R) Skin: Warm, Dry, Intact Neuro Extensive - Mental Status: Alert, Disorientation to Place, Disorientation to Time Psychiatric: Other (very tired due to receiving haldol last evening) - Patient Data Lab Results Last 24 hrs: Laboratory Results - last 24 hr 03/16/20 03/16/20 03/16/20 Range/Units 14:00 14:00 14:00 WBC 6.02 (3.98-10.04) K/mm3 RBC 4.34 (3.98-5.22) M/mm3 Hgb 12.7 D (11.2-15.7) gm/dl Hct 40.6 (34.1-44.9) % MCV 93.5 D (79.4-94.8) fl MCH 29.3 (25.6-32.2) pg MCHC 31.3 L (32.2-35.5) g/dl RDW Std Deviation 58.2 H (36.4-46.3) fL Plt Count 345 (182-369) K/mm3 MPV 9.2 L (9.4-12.3) fl Neut % (Auto) 81.3 H (34.0-71.1) % Lymph % (Auto) 11.5 L (19.3-51.7) % [place] % (Auto) 5.6 (4.7-12.5) % Eos % (Auto) 0.7 (0.7-5.8) Baso % (Auto) 0.7 (0.1-1.2) % Neut # (Auto) 4.90 (1.56-6.13) K/mm3 Lymph # (Auto) 0.69 L (1.18-3.74) K/mm3 [place] # (Auto) 0.34 (0.24-0.36) K/mm3 Eos # (Auto) 0.04 (0.04-0.36) K/mm3 Baso # (Auto) 0.04 (0.01-0.08) K/mm3 PT 12.0 H (9.7-11.7) SECONDS INR 1.12 Sodium 137 (136-145) mEq/L Potassium 5.3 H (3.5-5.1) mEq/L Chloride 102 (98-107) mEq/L Carbon Dioxide 21 (21-32) mEq/L Anion Gap 19.3 H (5-15) BUN 13 (7-18) mg/dL Creatinine 1.3 H (0.55-1.02) mg/dL Est Cr Clr Drug Dosing TNP Estimated GFR (MDRD) 39 (>60) mL/min BUN/Creatinine Ratio 10.0 L (14-18) Glucose 112 (83-115) mg/dL Calcium 8.5 (8.5-10.1) mg/dL Total Bilirubin 1.0 (0.2-1.0) mg/dL AST 15 (15-37) U/L ALT 20 (14-59) U/L Alkaline Phosphatase 72 (46-116) U/L Total Protein 6.6 (6.4-8.2) g/dl Albumin 3.3 L (3.4-5.0) g/dl Globulin 3.3 gm/dL Albumin/Globulin Ratio 1.0 (1-2) Urine Color (Yellow) Urine Appearance (Clear) Urine pH (5.0-8.0) Ur Specific [place] (1.005-1.030) Urine Protein (Negative) Urine Glucose (UA) (Negative) Urine Ketones (Negative) Urine Occult Blood (Negative) Urine Nitrite (Negative) Urine Bilirubin (Negative) Urine Urobilinogen (0.2-1.0) Ur Leukocyte Esterase (Negative) Urine RBC (0-5) /hpf Urine WBC (0-5) /hpf Ur Squamous Epith Cells (0-5) /hpf Urine Bacteria (FEW) /hpf Urine Mucus (FEW) /hpf SARS-CoV-2 RNA (BLANCA) (NEGATIVE) MRSA (PCR) 03/16/20 03/16/20 03/17/20 Range/Units 16:15 20:25 00:45 WBC (3.98-10.04) K/mm3 RBC (3.98-5.22) M/mm3 Hgb (11.2-15.7) gm/dl Hct (34.1-44.9) % MCV (79.4-94.8) fl MCH (25.6-32.2) pg MCHC (32.2-35.5) g/dl RDW Std Deviation (36.4-46.3) fL Plt Count (182-369) K/mm3 MPV (9.4-12.3) fl Neut % (Auto) (34.0-71.1) % Lymph % (Auto) (19.3-51.7) % [place] % (Auto) (4.7-12.5) % Eos % (Auto) (0.7-5.8) Baso % (Auto) (0.1-1.2) % Neut # (Auto) (1.56-6.13) K/mm3 Lymph # (Auto) (1.18-3.74) K/mm3 [place] # (Auto) (0.24-0.36) K/mm3 Eos # (Auto) (0.04-0.36) K/mm3 Baso # (Auto) (0.01-0.08) K/mm3 PT (9.7-11.7) SECONDS INR Sodium (136-145) mEq/L Potassium (3.5-5.1) mEq/L Chloride (98-107) mEq/L Carbon Dioxide (21-32) mEq/L Anion Gap (5-15) BUN (7-18) mg/dL Creatinine (0.55-1.02) mg/dL Est Cr Clr Drug Dosing Estimated GFR (MDRD) (>60) mL/min BUN/Creatinine Ratio (14-18) Glucose (83-115) mg/dL Calcium (8.5-10.1) mg/dL Total Bilirubin (0.2-1.0) mg/dL AST (15-37) U/L ALT (14-59) U/L Alkaline Phosphatase (46-116) U/L Total Protein (6.4-8.2) g/dl Albumin (3.4-5.0) g/dl Globulin gm/dL Albumin/Globulin Ratio (1-2) Urine Color Yellow (Yellow) Urine Appearance Cloudy H (Clear) Urine pH 5.5 (5.0-8.0) Ur Specific [place] > or = 1.030 (1.005-1.030) Urine Protein Trace H (Negative) Urine Glucose (UA) Negative (Negative) Urine Ketones 1+ H (Negative) Urine Occult Blood 1+ H (Negative) Urine Nitrite Negative (Negative) Urine Bilirubin 1+ H (Negative) Urine Urobilinogen 0.2 (0.2-1.0) Ur Leukocyte Esterase 3+ H (Negative) Urine RBC 5-10 H (0-5) /hpf Urine WBC Too numerous to cnt H (0-5) /hpf Ur Squamous Epith Cells Not seen (0-5) /hpf Urine Bacteria Not seen (FEW) /hpf Urine Mucus Not seen (FEW) /hpf SARS-CoV-2 RNA (BLANCA) Negative (NEGATIVE) MRSA (PCR) Negative Result Diagrams: 03/16/20 14:00 03/16/20 14:00 Cordell Results Last 24 hrs: Microbiology 03/16/20 16:15 Urine Culture - Preliminary Urine, Clean Catch NO GROWTH AFTER 1 DAY Sepsis Event Note - Evaluation Sepsis Screening Result: No Definite Risk - Focused Exam Vital Signs: Vital Signs Temp Pulse Resp BP Pulse Ox 03/17/20 11:39 97.9 F 71 14 96/49 L 98 03/17/20 09:07 97.2 F 72 14 108/52 L 100 03/17/20 03:51 97.3 F 71 103/85 99 - Problem List (1) Atrial fibrillation SNOMED Code(s): 00812829 ICD Code: I48.91 - UNSPECIFIED ATRIAL FIBRILLATION Status: Chronic Priority: Medium Current Visit: Yes Qualifiers: Atrial fibrillation type: unspecified Qualified Code(s): I48.91 - Unspeci fied atrial fibrillation (2) Hypertension SNOMED Code(s): 43910061 ICD Code: I10 - ESSENTIAL (PRIMARY) HYPERTENSION Status: Chronic Priority: Medium Current Visit: Yes Qualifiers: Hypertension type: unspecified Qualified Code(s): I10 - Essential (primary) hypertension (3) Diabetes SNOMED Code(s): 27004300 ICD Code: E11.9 - TYPE 2 DIABETES MELLITUS WITHOUT COMPLICATIONS Status: Chronic Priority: Medium Current Visit: Yes Qualifiers: Diabetes mellitus type: type 2 (4) Dementia SNOMED Code(s): 72479573 ICD Code: F03.90 - UNSPECIFIED DEMENTIA WITHOUT BEHAVIORAL DISTURBANCE Status: Acute Priority: High Current Visit: Yes Qualifiers: Dementia type: unspecified type Dementia behavioral disturbance: with behavioral disturbance Qualified Code(s): F03.91 - Unspecified dementia with behavioral disturbance (5) Hallucinations SNOMED Code(s): 6167299 ICD Code: R44.3 - HALLUCINATIONS, UNSPECIFIED Status: Acute Priority: High Current Visit: Yes (6) Urinary tract infection SNOMED Code(s): 90808699 ICD Code: N39.0 - URINARY TRACT INFECTION, SITE NOT SPECIFIED Status: Acute Priority: High Current Visit: Yes Qualifiers: Urinary tract infection type: site unspecified Hematuria presence: with hematuria Qualified Code(s): N39.0 - Urinary tract infection, site not specified; R31.9 - Hematuria, unspecified Problem List Initiated/Reviewed/Updated: Yes Orders Last 24hrs: Active Orders 24 hr Category Date Time Status Patient Status [ADT] Routine ADT 03/16/20 20:55 Active Notify Provider Consults [RC] ASDIRECTED Care 03/17/20 07:41 Active Up With Assistance [RC] BID Care 03/17/20 00:18 Active Consult to Case Management/Almond Grinder [CONS] Cons 03/17/20 08:35 Active Routine OT Evaluation and Treatment [CONS] Routine Cons 03/17/20 08:34 Active PT Evaluation and Treatment [CONS] Routine Cons 03/17/20 08:34 Active National Dysphagia Diet [DIET] Diet 03/17/20 Breakfast Active Chest 1V Frontal [CR] Stat Exams 03/16/20 16:07 Taken Head wo Cont [CT] Stat Exams 03/16/20 16:07 Taken CULTURE URINE [RM] Stat Lab 03/16/20 16:15 Results Amiodarone [Cordarone] Med 03/17/20 09:00 Active 200 mg PO DAILY Apixaban [Eliquis] Med 03/17/20 09:00 Active 2.5 mg PO BID Piperacillin/Tazobactam [Piperacil-Tazobact] 4.5 gm Med 03/17/20 04:00 Active Sodium Chloride 0.9% [Normal Saline] 100 ml IV Q8H Sodium Chloride 0.9% [Normal Saline] 1,000 ml Med 03/16/20 19:45 Active IV ASDIRECTED Code Status [Resuscitation Status] Routine Resus Stat 03/17/20 00:18 Ordered Medication Orders Amiodarone HCl (Cordarone) 200 mg PO DAILY LINDA Last Admin: 03/17/20 09:09 Dose: 200 mg Documented by: SCHAKAY Apixaban (Eliquis) 2.5 mg PO BID [facility] Last Admin: 03/17/20 09:09 Dose: 2.5 mg Documented by: SARA Sodium Chloride (Normal Saline) 1,000 mls @ 100 mls/hr IV ASDIRECTED [facility] Last Admin: 03/17/20 03:47 Dose: 100 mls/hr Documented by: Infusion: 03/17/20 03:47 Dose: 100 mls/hr Documented by: Admin: 03/16/20 20:00 Dose: 100 mls/hr Documented by: RUSSEL Piperacillin Sod/Tazobactam (Sod 4.5 gm/ Sodium Chloride) 100 mls @ 25 mls/hr IV Q8H [facility] Last Admin: 03/17/20 11:21 Dose: 25 mls/hr Documented by: Infusion: 03/17/20 07:49 Dose: 25 mls/hr Documented by: Admin: 03/17/20 03:49 Dose: 25 mls/hr Documented by: MEGGAN Assessment/Plan Comment:: 03/17/20 History of combative behaviors and hallucinations recently treated at [facility] in [place] for 3 weeks. residential states they will not accept her back to her facility at this time. New onset atrial fibrillation recently started on amiodarone. Chronically treated UTI. Lab results: Potassium 5.3 Anion gap 19.3 BUN 13 Creatinine 1.3 GFR 39 Glucose 112 Urinalysis shows trace of protein, 1+ ketones, 1+ blood ,1+ bilirubin, 3+ leuk esterase, urine WBCs too numerous to count. Patient was on oral Augmentin but has only gotten half the doses with the organism they are treating and is not receptive to Rocephin that she was started on in the ER. Been started on Zosyn IV. Awaiting culture and sensitivity report. Heart rate on admission is 95 Admission blood pressure 128/70 Diabetes home management with metformin Glucose on admission is 112 PLAN Await urine culture and sensitivity Continue IV Zosyn every [address] Lomax to consult for behaviors Hold oral metformen To her blood sugars Recheck lab work and correct any electrolyte abnormalities Continue amiodarone Check vital signs every 4 hours PT and OT consult licensing services clerk and case management consult Dietary consult Prophylaxis DVT-pt is on eliquis CODE STATUS: FULL CODE Disposition: [facility] of UTI. Dr. Lomax to be consulted on behaviors. licensing services clerk and case management for discharge planning. - Mortality Measure Prognosis:: Good <Enrique Feliz - Last Filed: 03/17/20 15:26> H&P History of Present Illness - General Admit Problem/Dx: Admission Diagnosis/Problem Admission Diagnosis/Problem Urinary tract infection - History of Present Illness Initial Comments - Free Text/Narative: I have seen and examined the patient independent of nurse practitioner Redd Escobar and I have discussed the case with her. I have reviewed and agree with the assessment and plan as outlined for this patient by her. Please see orders. Exam - Vital Signs Vital Signs: Last Vital Signs Temp 36.6 C 03/17/20 11:39 Pulse 71 03/17/20 11:39 Resp 14 03/17/20 11:39 BP 96/49 L 03/17/20 11:39 Pulse Ox 98 03/17/20 11:39 - Patient Data Lab Results Last 24 hrs: Laboratory Results - last 24 hr 03/16/20 03/16/20 03/16/20 Range/Units 14:00 14:00 14:00 WBC 6.02 (3.98-10.04) K/mm3 RBC 4.34 (3.98-5.22) M/mm3 Hgb 12.7 D (11.2-15.7) gm/dl Hct 40.6 (34.1-44.9) % MCV 93.5 D (79.4-94.8) fl MCH 29.3 (25.6-32.2) pg MCHC 31.3 L (32.2-35.5) g/dl RDW Std Deviation 58.2 H (36.4-46.3) fL Plt Count 345 (182-369) K/mm3 MPV 9.2 L (9.4-12.3) fl Neut % (Auto) 81.3 H (34.0-71.1) % Lymph % (Auto) 11.5 L (19.3-51.7) % [place] % (Auto) 5.6 (4.7-12.5) % Eos % (Auto) 0.7 (0.7-5.8) Baso % (Auto) 0.7 (0.1-1.2) % Neut # (Auto) 4.90 (1.56-6.13) K/mm3 Lymph # (Auto) 0.69 L (1.18-3.74) K/mm3 [place] # (Auto) 0.34 (0.24-0.36) K/mm3 Eos # (Auto) 0.04 (0.04-0.36) K/mm3 Baso # (Auto) 0.04 (0.01-0.08) K/mm3 PT 12.0 H (9.7-11.7) SECONDS INR 1.12 Sodium 137 (136-145) mEq/L Potassium 5.3 H (3.5-5.1) mEq/L Chloride 102 (98-107) mEq/L Carbon Dioxide 21 (21-32) mEq/L Anion Gap 19.3 H (5-15) BUN 13 (7-18) mg/dL Creatinine 1.3 H (0.55-1.02) mg/dL Est Cr Clr Drug Dosing TNP Estimated GFR (MDRD) 39 (>60) mL/min BUN/Creatinine Ratio 10.0 L (14-18) Glucose 112 (83-115) mg/dL Calcium 8.5 (8.5-10.1) mg/dL Total Bilirubin 1.0 (0.2-1.0) mg/dL AST 15 (15-37) U/L ALT 20 (14-59) U/L Alkaline Phosphatase 72 (46-116) U/L Total Protein 6.6 (6.4-8.2) g/dl Albumin 3.3 L (3.4-5.0) g/dl Globulin 3.3 gm/dL Albumin/Globulin Ratio 1.0 (1-2) Urine Color (Yellow) Urine Appearance (Clear) Urine pH (5.0-8.0) Ur Specific [place] (1.005-1.030) Urine Protein (Negative) Urine Glucose (UA) (Negative) Urine Ketones (Negative) Urine Occult Blood (Negative) Urine Nitrite (Negative) Urine Bilirubin (Negative) Urine Urobilinogen (0.2-1.0) Ur Leukocyte Esterase (Negative) Urine RBC (0-5) /hpf Urine WBC (0-5) /hpf Ur Squamous Epith Cells (0-5) /hpf Urine Bacteria (FEW) /hpf Urine Mucus (FEW) /hpf SARS-CoV-2 RNA (BLANCA) (NEGATIVE) MRSA (PCR) 03/16/20 03/16/20 03/17/20 Range/Units 16:15 20:25 00:45 WBC (3.98-10.04) K/mm3 RBC (3.98-5.22) M/mm3 Hgb (11.2-15.7) gm/dl Hct (34.1-44.9) % MCV (79.4-94.8) fl MCH (25.6-32.2) pg MCHC (32.2-35.5) g/dl RDW Std Deviation (36.4-46.3) fL Plt Count (182-369) K/mm3 MPV (9.4-12.3) fl Neut % (Auto) (34.0-71.1) % Lymph % (Auto) (19.3-51.7) % [place] % (Auto) (4.7-12.5) % Eos % (Auto) (0.7-5.8) Baso % (Auto) (0.1-1.2) % Neut # (Auto) (1.56-6.13) K/mm3 Lymph # (Auto) (1.18-3.74) K/mm3 [place] # (Auto) (0.24-0.36) K/mm3 Eos # (Auto) (0.04-0.36) K/mm3 Baso # (Auto) (0.01-0.08) K/mm3 PT (9.7-11.7) SECONDS INR Sodium (136-145) mEq/L Potassium (3.5-5.1) mEq/L Chloride (98-107) mEq/L Carbon Dioxide (21-32) mEq/L Anion Gap (5-15) BUN (7-18) mg/dL Creatinine (0.55-1.02) mg/dL Est Cr Clr Drug Dosing Estimated GFR (MDRD) (>60) mL/min BUN/Creatinine Ratio (14-18) Glucose (83-115) mg/dL Calcium (8.5-10.1) mg/dL Total Bilirubin (0.2-1.0) mg/dL AST (15-37) U/L ALT (14-59) U/L Alkaline Phosphatase (46-116) U/L Total Protein (6.4-8.2) g/dl Albumin (3.4-5.0) g/dl Globulin gm/dL Albumin/Globulin Ratio (1-2) Urine Color Yellow (Yellow) Urine Appearance Cloudy H (Clear) Urine pH 5.5 (5.0-8.0) Ur Specific [place] > or = 1.030 (1.005-1.030) Urine Protein Trace H (Negative) Urine Glucose (UA) Negative (Negative) Urine Ketones 1+ H (Negative) Urine Occult Blood 1+ H (Negative) Urine Nitrite Negative (Negative) Urine Bilirubin 1+ H (Negative) Urine Urobilinogen 0.2 (0.2-1.0) Ur Leukocyte Esterase 3+ H (Negative) Urine RBC 5-10 H (0-5) /hpf Urine WBC Too numerous to cnt H (0-5) /hpf Ur Squamous Epith Cells Not seen (0-5) /hpf Urine Bacteria Not seen (FEW) /hpf Urine Mucus Not seen (FEW) /hpf SARS-CoV-2 RNA (BLANCA) Negative (NEGATIVE) MRSA (PCR) Negative Result Diagrams: 03/16/20 14:00 03/16/20 14:00 Cordell Results Last 24 hrs: Microbiology 03/16/20 16:15 Urine Culture - Preliminary Urine, Clean Catch NO GROWTH AFTER 1 DAY Sepsis Event Note - Focused Exam Vital Signs: Vital Signs Temp Pulse Resp BP Pulse Ox 03/17/20 11:39 36.6 C 71 14 96/49 L 98 03/17/20 09:07 36.2 C 72 14 108/52 L 100 03/17/20 03:51 36.3 C 71 103/85 99 Orders Last 24hrs: Active Orders 24 hr Category Date Time Status Patient Status [ADT] Routine ADT 03/16/20 20:55 Active Notify Provider Consults [RC] ASDIRECTED Care 03/17/20 07:41 Active Up With Assistance [RC] BID Care 03/17/20 00:18 Active Consult to Case Management/Almond Grinder [CONS] Cons 03/17/20 08:35 Active Routine OT Evaluation and Treatment [CONS] Routine Cons 03/17/20 08:34 Active PT Evaluation and Treatment [CONS] Routine Cons 03/17/20 08:34 Active National Dysphagia Diet [DIET] Diet 03/17/20 Dinner Active Chest 1V Frontal [CR] Stat Exams 03/16/20 16:07 Taken Head wo Cont [CT] Stat Exams 03/16/20 16:07 Taken CBC WITH AUTO DIFF [HEME] AM Lab 03/18/20 05:11 Ordered COMPREHENSIVE METABOLIC PN,CMP [CHEM] AM Lab 03/18/20 05:11 Ordered CULTURE URINE [RM] Stat Lab 03/16/20 16:15 Results MAGNESIUM [CHEM] AM Lab 03/18/20 05:11 Ordered Amiodarone [Cordarone] Med 03/17/20 09:00 Active 200 mg PO DAILY Apixaban [Eliquis] Med 03/17/20 09:00 Active 2.5 mg PO BID Piperacillin/Tazobactam [Piperacil-Tazobact] 4.5 gm Med 03/17/20 04:00 Active Sodium Chloride 0.9% [Normal Saline] 100 ml IV Q8H Sodium Chloride 0.9% [Normal Saline] 1,000 ml Med 03/16/20 19:45 Active IV ASDIRECTED Code Status [Resuscitation Status] Routine Resus Stat 03/17/20 00:18 Ordered Medication Orders Amiodarone HCl (Cordarone) 200 mg PO DAILY [facility] Last Admin: 03/17/20 09:09 Dose: 200 mg Documented by: SARA Apixaban (Eliquis) 2.5 mg PO BID [facility] Last Admin: 03/17/20 09:09 Dose: 2.5 mg Documented by: SARA Sodium Chloride (Normal Saline) 1,000 mls @ 100 mls/hr IV ASDIRECTED [facility] Last Admin: 03/17/20 13:37 Dose: 100 mls/hr Documented by: Infusion: 03/17/20 13:37 Dose: 100 mls/hr Documented by: Admin: 03/17/20 03:47 Dose: 100 mls/hr Documented by: Infusion: 03/17/20 03:47 Dose: 100 mls/hr Documented by: Admin: 03/16/20 20:00 Dose: 100 mls/hr Documented by: RUSSEL Piperacillin Sod/Tazobactam (Sod 4.5 gm/ Sodium Chloride) 100 mls @ 25 mls/hr IV Q8H [facility] Last Admin: 03/17/20 11:21 Dose: 25 mls/hr Documented by: Infusion: 03/17/20 07:49 Dose: 25 mls/hr Documented by: Admin: 03/17/20 03:49 Dose: 25 mls/hr Documented by: MEGGAN
[2020-03-17] MEDS: Haloperidol 1 MG Tab PO SCH (20:42)
[2020-03-18] MEDS: Sodium Chloride 0.9% 1,000 ML IV SCH (00:10)
[2020-03-18] MEDS: Piperacillin/Tazobactam 4.5 GM in Sodium Chloride 0.9% 100 ML IV SCH ×2 (04:36→13:09)
[2020-03-18] MEDS ORDERED: Magnesium Sulfate/Water 2 GM/50 ML BAG IV ONE (07:50)
[2020-03-18] MEDS: Amiodarone 200 MG Tab PO SCH (09:51)
[2020-03-18] MEDS: Apixaban 2.5 MG Tab PO SCH ×2 (09:51→20:46)
--- NOTE | 2020-03-18 10:16 | PCM.PN ---
- General Info Date of Service: 03/18/20 Admission Dx/Problem (Free Text): Admission Diagnosis/Problem Admission Diagnosis/Problem Urinary tract infection Subjective Update: Alert and oriented x3. Dates she did not sleep very well last night but feels better today than yesterday. Functional Status: Reports: Pain Controlled, Tolerating Diet, Ambulating, Urinating - Review of Systems General: Reports: No Symptoms HEENT: Reports: No Symptoms Pulmonary: Reports: No Symptoms Cardiovascular: Reports: No Symptoms Gastrointestinal: Reports: No Symptoms Genitourinary: Reports: No Symptoms Musculoskeletal: Reports: No Symptoms Skin: Reports: No Symptoms Neurological: Reports: No Symptoms Psychiatric: Reports: No Symptoms - Patient Data Vitals - Most Recent: Last Vital Signs Temp 97.0 F 03/18/20 08:00 Pulse 87 03/18/20 08:14 Resp 16 03/18/20 08:14 BP 107/63 03/18/20 08:14 Pulse Ox 92 L 03/18/20 08:14 Weight - Most Recent: 115 lb I&O - Last 24 Hours: Intake & Output 03/17/20 03/18/20 03/18/20 22:59 06:59 14:59 Intake Total 1825 1540 Output Total 500 350 Balance 1325 1190 Lab Results Last 24 Hours: Laboratory Results - last 24 hr 03/18/20 03/18/20 Range/Units 06:48 06:48 WBC 3.79 L (3.98-10.04) K/mm3 RBC 3.56 L (3.98-5.22) M/mm3 Hgb 10.2 L D (11.2-15.7) gm/dl Hct 34.0 L (34.1-44.9) % MCV 95.5 H (79.4-94.8) fl MCH 28.7 (25.6-32.2) pg MCHC 30.0 L (32.2-35.5) g/dl RDW Std Deviation 59.1 H (36.4-46.3) fL Plt Count 230 D (182-369) K/mm3 MPV 8.9 L (9.4-12.3) fl Neut % (Auto) 66.7 (34.0-71.1) % Lymph % (Auto) 24.3 (19.3-51.7) % [place] % (Auto) 5.0 (4.7-12.5) % Eos % (Auto) 2.9 (0.7-5.8) Baso % (Auto) 0.8 (0.1-1.2) % Neut # (Auto) 2.53 (1.56-6.13) K/mm3 Lymph # (Auto) 0.92 L (1.18-3.74) K/mm3 [place] # (Auto) 0.19 L (0.24-0.36) K/mm3 Eos # (Auto) 0.11 (0.04-0.36) K/mm3 Baso # (Auto) 0.03 (0.01-0.08) K/mm3 Manual Slide Review Not Reportable Sodium 141 (136-145) mEq/L Potassium 3.9 (3.5-5.1) mEq/L Chloride 108 H (98-107) mEq/L Carbon Dioxide 18 L (21-32) mEq/L Anion Gap 18.9 H (5-15) BUN 9 (7-18) mg/dL Creatinine 0.9 (0.55-1.02) mg/dL Est Cr Clr Drug Dosing 38.32 mL/min Estimated GFR (MDRD) 60 (>60) mL/min BUN/Creatinine Ratio 10.0 L (14-18) Glucose 57 L (83-115) mg/dL Calcium 7.4 L (8.5-10.1) mg/dL Magnesium 1.7 L (1.8-2.4) mg/dl Total Bilirubin 0.7 (0.2-1.0) mg/dL AST 13 L (15-37) U/L ALT 15 (14-59) U/L Alkaline Phosphatase 42 L (46-116) U/L Total Protein 4.6 L (6.4-8.2) g/dl Albumin 2.1 L (3.4-5.0) g/dl Globulin 2.5 gm/dL Albumin/Globulin Ratio 0.8 L (1-2) Cordell Results Last 24 Hours: Microbiology 03/16/20 16:15 Urine Culture - Preliminary Urine, Clean Catch NO GROWTH AFTER 1 DAY Med Orders - Current: Current Medications Amiodarone HCl (Cordarone) 200 mg PO DAILY LINDA Last Admin: 03/18/20 09:51 Dose: 200 mg Documented by: Apixaban (Eliquis) 2.5 mg PO BID [facility] Last Admin: 03/18/20 09:51 Dose: 2.5 mg Documented by: Haloperidol (Haldol) 2 mg PO BEDTIME [facility] Last Admin: 03/17/20 20:42 Dose: 2 mg Documented by: Sodium Chloride (Normal Saline) 1,000 mls @ 100 mls/hr IV ASDIRECTED [facility] Last Admin: 03/18/20 00:10 Dose: 100 mls/hr Documented by: Piperacillin Sod/Tazobactam (Sod 4.5 gm/ Sodium Chloride) 100 mls @ 25 mls/hr IV Q8H [facility] Last Admin: 03/18/20 04:36 Dose: 25 mls/hr Documented by: Discontinued Medications Haloperidol Lactate (Haldol) Confirm Administered Dose 5 mg .ROUTE .STK-MED ONE Stop: 03/16/20 22:48 Last Admin: 03/16/20 22:54 Dose: Not Given Documented by: Haloperidol Lactate (Haldol) 5 mg IM ONETIME STA Stop: 03/16/20 22:51 Last Admin: 03/16/20 22:53 Dose: 5 mg Documented by: Ceftriaxone Sodium 1 gm/ (Sodium Chloride) 100 mls @ 200 mls/hr IV ONETIME ONE Stop: 03/16/20 18:53 Last Admin: 03/16/20 19:12 Dose: 200 mls/hr Documented by: Piperacillin Sod/Tazobactam (Sod 4.5 gm/ Sodium Chloride) 100 mls @ 200 mls/hr IV ONETIME ONE Stop: 03/16/20 20:12 Last Admin: 03/16/20 20:00 Dose: 200 mls/hr Documented by: Magnesium Sulfate (Magnesium Sulfate In Water Premix) 2 gm in 50 mls @ 25 mls/hr IV ONETIME ONE Stop: 03/18/20 09:49 - Exam Quality Assessment: Supplemental Oxygen, DVT Prophylaxis (Eliquis) General: Alert, Oriented, Cooperative HEENT: Pupils Equal, Pupils Reactive, Mucous Membr. Moist/[place] Neck: Supple, Trachea Midline. No: Lymphadenopathy Lungs: Clear to Auscultation, Normal Respiratory Effort Cardiovascular: Regular Rate, Regular Rhythm, No Murmurs GI/Abdominal Exam: Normal Bowel Sounds, Soft, Non-Tender, No Distention (Female) Exam: Deferred Back Exam: Normal Inspection, Full Range of Motion Extremities: Normal Inspection, Normal Range of Motion, Non-Tender, No Pedal Edema, Normal Capillary Refill Peripheral Pulses: 2+: Radial (L), Radial (R), Dorsalis Pedis (L), Dorsalis Pedis (R) Skin: Warm, Dry, Intact Wound/Incisions: Healing Well Neurological: No New Focal Deficit Psy/Mental Status: Alert, Normal Affect, Normal Mood Sepsis Event Note - Evaluation Sepsis Screening Result: No Definite Risk - Focused Exam Vital Signs: Vital Signs Temp Temp Pulse Resp BP Pulse Ox 03/18/20 08:14 87 16 107/63 92 L 03/18/20 08:00 97.0 F 03/18/20 02:47 97.5 F 75 18 118/75 96 - Problem List & Annotations (1) Atrial fibrillation SNOMED Code(s): 29437521 Code(s): I48.91 - UNSPECIFIED ATRIAL FIBRILLATION Status: Chronic Priority: Medium Current Visit: Yes Qualifiers: Atrial fibrillation type: unspecified Qualified Code(s): I48.91 - Unspecified atrial fibrillation (2) Hypertension SNOMED Code(s): 90298109 Code(s): I10 - ESSENTIAL (PRIMARY) HYPERTENSION Status: Chronic Priority: Medium Current Visit: Yes Qualifiers: Hypertension type: unspecified Qualified Code(s): I10 - Essential (primary) hypertension (3) Diabetes SNOMED Code(s): 86195636 Code(s): E11.9 - TYPE 2 DIABETES MELLITUS WITHOUT COMPLICATIONS Status: Chronic Priority: Medium Current Visit: Yes Qualifiers: Diabetes mellitus type: type 2 (4) Dementia SNOMED Code(s): 84422702 Code(s): F03.90 - UNSPECIFIED DEMENTIA WITHOUT BEHAVIORAL DISTURBANCE Status: Acute Priority: High Current Visit: Yes Qualifiers: Dementia type: unspecified type Dementia behavioral disturbance: with behavioral disturbance Qualified Code(s): F03.91 - Unspecified dementia with behavioral disturbance (5) Hallucinations SNOMED Code(s): 1420061 Code(s): R44.3 - HALLUCINATIONS, UNSPECIFIED Status: Acute Priority: High Current Visit: Yes (6) Urinary tract infection SNOMED Code(s): 67682216 Code(s): N39.0 - URINARY TRACT INFECTION, SITE NOT SPECIFIED Status: Acute Priority: High Current Visit: Yes Qualifiers: Urinary tract infection type: site unspecified Hematuria presence: without hematuria Qualified Code(s): N39.0 - Urinary tract infection, site not specified - Problem List Review Problem List Initiated/Reviewed/Updated: Yes - Assessment Assessment:: 03/18/20 * Alert and oriented x3 today * Denies having any complaints * Dr. Lomax consult plan: #1 begin regular Haldol 2 mg at bedtime to help with clarity of thought and elimination of any psychotic or paranoid symptoms. #2 he will continue to follow-up with the patient on an as-needed basis while she remains at [facility]. #3 he would recommend that she follow-up with outpatient psych when she is medically stabilized and discharged back to [facility]. * Urinalysis reveals: Nitrite negative 3+ leukocyte Estrace Urine WBC too numerous to count Urine bacteria not seen Urine culture preliminary: Yeast isolated * The patient is asymptomatic with this urinalysis. * WBC 3.79 Hemoglobin 10.2 Potassium 3.9 Anion gap 18.9 BUN 9 Creatinine 0.9 Magnesium 1.7 * Signs remained stable. * Refused her at bedtime dose of Eliquis last night * Had been refusing medications at the [facility] stating that she thought they were all poison. * Atrial fib management with amiodarone and Eliquis Plan * Start Haldol 2 mg at bedtime * Discontinue Zosyn * Start Diflucan 200 mg IV x1 dose will reevaluate in 3 days. * Magnesium 2 g IV today * services host for discharge planning back to the [facility] * PT and OT to evaluate and treat * Dietitian consulting for adequate p.o. caloric needs * Eliquis for atrial fib and DVT prophylaxis * Patient is a DNR * Check labs and replace electrolytes as needed * Discontinue IV fluids Patient will remain admitted to [facility] [place] [facility] status. [facility] will accept the patient back on March 22. Plan for discharge then. - Plan Plan:: Atrial fibrillation,Hypertension -on eliquis and amiodarone Diabetes -check blood sugars daily -diabetic diet Dementia,Hallucinations -Haldol 2mg at bedtime Urinary tract infection -UC grew out yeast -dc zosyn -start diflucan IV x 1 dose PROPHYLAXIS DVT-home eliquis CODE STATUS:DNR DISPOSITION: The patient will remain admitted to the [facility] floor. Stabilize on Haldol. Pending discharge Sunday back to [facility]
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
[2020-03-18] MEDS ORDERED: Fluconazole/Normal Saline 200 MG in Premix Bag 1 BAG IV ONE (13:00)
[2020-03-18] MEDS: Haloperidol 1 MG Tab PO SCH (20:46)
[2020-03-19] MEDS: Amiodarone 200 MG Tab PO SCH (09:19)
[2020-03-19] MEDS: Apixaban 2.5 MG Tab PO SCH ×2 (09:19→20:47)
[2020-03-19] MEDS ORDERED: Potassium Chloride 20 MEQ Tab.ER PO ONE (09:29)
--- NOTE | 2020-03-19 09:41 | PCM.PN ---
- General Info Date of Service: 03/19/20 Admission Dx/Problem (Free Text): Admission Diagnosis/Problem Admission Diagnosis/Problem Urinary tract infection Subjective Update: Reports that she feels well. She slept well and has no complaints today. Functional Status: Reports: Pain Controlled, Tolerating Diet, Ambulating (With physical therapy), Urinating - Review of Systems General: Reports: No Symptoms HEENT: Reports: No Symptoms Pulmonary: Reports: No Symptoms Cardiovascular: Reports: No Symptoms Gastrointestinal: Reports: No Symptoms Genitourinary: Reports: No Symptoms Musculoskeletal: Reports: No Symptoms Skin: Reports: No Symptoms Neurological: Reports: No Symptoms Psychiatric: Reports: No Symptoms - Patient Data Vitals - Most Recent: Last Vital Signs Temp 97.7 F 03/19/20 08:42 Pulse 80 03/19/20 08:42 Resp 16 03/19/20 08:42 BP 120/67 03/19/20 08:42 Pulse Ox 97 03/19/20 08:42 Weight - Most Recent: 116 lb 9.6 oz I&O - Last 24 Hours: Intake & Output 03/18/20 03/19/20 03/19/20 22:59 06:59 14:59 Intake Total 1200 200 Output Total 200 500 Balance 1000 -300 Lab Results Last 24 Hours: Laboratory Results - last 24 hr 03/19/20 03/19/20 Range/Units 05:15 05:15 WBC 4.31 (3.98-10.04) K/mm3 RBC 3.67 L (3.98-5.22) M/mm3 Hgb 10.6 L (11.2-15.7) gm/dl Hct 34.4 (34.1-44.9) % MCV 93.7 (79.4-94.8) fl MCH 28.9 (25.6-32.2) pg MCHC 30.8 L (32.2-35.5) g/dl RDW Std Deviation 56.9 H (36.4-46.3) fL Plt Count 253 (182-369) K/mm3 MPV 8.9 L (9.4-12.3) fl Neut % (Auto) 67.1 (34.0-71.1) % Lymph % (Auto) 22.3 (19.3-51.7) % Miner % (Auto) 6.7 (4.7-12.5) % Eos % (Auto) 3.2 (0.7-5.8) Baso % (Auto) 0.7 (0.1-1.2) % Neut # (Auto) 2.89 (1.56-6.13) K/mm3 Lymph # (Auto) 0.96 L (1.18-3.74) K/mm3 Miner # (Auto) 0.29 (0.24-0.36) K/mm3 Eos # (Auto) 0.14 (0.04-0.36) K/mm3 Baso # (Auto) 0.03 (0.01-0.08) K/mm3 Sodium 139 (136-145) mEq/L Potassium 3.6 (3.5-5.1) mEq/L Chloride 106 (98-107) mEq/L Carbon Dioxide 22 (21-32) mEq/L Anion Gap 14.6 (5-15) BUN 7 (7-18) mg/dL Creatinine 0.7 (0.55-1.02) mg/dL Est Cr Clr Drug Dosing 49.95 mL/min Estimated GFR (MDRD) > 60 (>60) mL/min BUN/Creatinine Ratio 10.0 L (14-18) Glucose 72 L (83-115) mg/dL Calcium 7.5 L (8.5-10.1) mg/dL Magnesium 1.9 (1.8-2.4) mg/dl Total Bilirubin 0.6 (0.2-1.0) mg/dL AST 13 L (15-37) U/L ALT 13 L (14-59) U/L Alkaline Phosphatase 45 L (46-116) U/L Total Protein 5.3 L (6.4-8.2) g/dl Albumin 2.2 L (3.4-5.0) g/dl Globulin 3.1 gm/dL Albumin/Globulin Ratio 0.7 L (1-2) Cordell Results Last 24 Hours: Microbiology 03/16/20 16:15 Urine Culture - Preliminary Urine, Clean Catch Yeast Isolated Med Orders - Current: Current Medications Amiodarone HCl (Cordarone) 200 mg PO DAILY [facility] Last Admin: 03/19/20 09:19 Dose: 200 mg Documented by: Apixaban (Eliquis) 2.5 mg PO BID [facility] Last Admin: 03/19/20 09:19 Dose: 2.5 mg Documented by: Haloperidol (Haldol) 2 mg PO BEDTIME [facility] Last Admin: 03/18/20 20:46 Dose: 2 mg Documented by: Potassium Chloride (Klor-Con M20) 20 meq PO ONETIME ONE Stop: 03/19/20 09:30 Discontinued Medications Haloperidol Lactate (Haldol) Confirm Administered Dose 5 mg .ROUTE .STK-MED ONE Stop: 03/16/20 22:48 Last Admin: 03/16/20 22:54 Dose: Not Given Documented by: Haloperidol Lactate (Haldol) 5 mg IM ONETIME [facility] Stop: 03/16/20 22:51 Last Admin: 03/16/20 22:53 Dose: 5 mg Documented by: Ceftriaxone Sodium 1 gm/ (Sodium Chloride) 100 mls @ 200 mls/hr IV ONETIME ONE Stop: 03/16/20 18:53 Last Admin: 03/16/20 19:12 Dose: 200 mls/hr Documented by: Piperacillin Sod/Tazobactam (Sod 4.5 gm/ Sodium Chloride) 100 mls @ 200 mls/hr IV ONETIME ONE Stop: 03/16/20 20:12 Last Admin: 03/16/20 20:00 Dose: 200 mls/hr Documented by: Sodium Chloride (Normal Saline) 1,000 mls @ 100 mls/hr IV ASDIRECTED [facility] Last Admin: 03/18/20 00:10 Dose: 100 mls/hr Documented by: Piperacillin Sod/Tazobactam (Sod 4.5 gm/ Sodium Chloride) 100 mls @ 25 mls/hr IV Q8H [facility] Last Admin: 03/18/20 13:09 Dose: Not Given Documented by: Magnesium Sulfate (Magnesium Sulfate In Water Premix) 2 gm in 50 mls @ 25 mls/hr IV ONETIME ONE Stop: 03/18/20 09:49 Last Admin: 03/18/20 14:04 Dose: 25 mls/hr Documented by: Fluconazole/Sodium Chloride (200 mg/ Premix) 100 mls @ 100 mls/hr IV ONETIME ONE Stop: 03/18/20 13:59 Last Admin: 03/18/20 12:48 Dose: 100 mls/hr Documented by: - Exam Quality Assessment: DVT Prophylaxis (on eliquis). No: Supplemental Oxygen General: Alert, Oriented, Cooperative, No Acute Distress HEENT: Pupils Equal, Pupils Reactive, Mucous Membr. Moist/[place] Neck: Supple, Trachea Midline. No: Lymphadenopathy Lungs: Clear to Auscultation, Normal Respiratory Effort Cardiovascular: Regular Rate, Regular Rhythm GI/Abdominal Exam: Normal Bowel Sounds, Soft, Non-Tender, No Distention (Female) Exam: Deferred Back Exam: Normal Inspection, Full Range of Motion Extremities: Normal Inspection, Normal Range of Motion, Non-Tender, No Pedal Edema, Normal Capillary Refill Peripheral Pulses: 2+: Radial (L), Radial (R), Dorsalis Pedis (L), Dorsalis Pedis (R) Skin: Warm, Dry, Intact Neurological: No New Focal Deficit Psy/Mental Status: Alert, Normal Affect, Normal Mood Sepsis Event Note - Evaluation Sepsis Screening Result: No Definite Risk - Focused Exam Vital Signs: Vital Signs Temp Pulse Resp BP Pulse Ox 03/19/20 08:42 97.7 F 80 16 120/67 97 03/19/20 04:09 97.9 F 82 18 117/52 L 99 03/18/20 23:23 97.2 F 78 18 123/61 97 - Problem List & Annotations (1) Atrial fibrillation SNOMED Code(s): 57531023 Code(s): I48.91 - UNSPECIFIED ATRIAL FIBRILLATION Status: Chronic Priority: Medium Current Visit: Yes Qualifiers: Atrial fibrillation type: unspecified Qualified Code(s): I48.91 - Unspecified atrial fibrillation (2) Hypertension SNOMED Code(s): 37320531 Code(s): I10 - ESSENTIAL (PRIMARY) HYPERTENSION Status: Chronic Priority: Medium Current Visit: Yes Qualifiers: Hypertension type: unspecified Qualified Code(s): I10 - Essential (primary) hypertension (3) Diabetes SNOMED Code(s): 86420304 Code(s): E11.9 - TYPE 2 DIABETES MELLITUS WITHOUT COMPLICATIONS Status: Chronic Priority: Medium Current Visit: Yes Qualifiers: Diabetes mellitus type: type 2 (4) Dementia SNOMED Code(s): 14179188 Code(s): F03.90 - UNSPECIFIED DEMENTIA WITHOUT BEHAVIORAL DISTURBANCE Status: Acute Priority: High Current Visit: Yes Qualifiers: Dementia type: unspecified type Dementia behavioral disturbance: with behavioral disturbance Qualified Code(s): F03.91 - Unspecified dementia with behavioral disturbance (5) Hallucinations SNOMED Code(s): 8725454 Code(s): R44.3 - HALLUCINATIONS, UNSPECIFIED Status: Acute Priority: High Current Visit: Yes (6) Urinary tract infection SNOMED Code(s): 70688439 Code(s): N39.0 - URINARY TRACT INFECTION, SITE NOT SPECIFIED Status: Acute Priority: High Current Visit: Yes Qualifiers: Urinary tract infection type: site unspecified Hematuria presence: without hematuria Qualified Code(s): N39.0 - Urinary tract infection, site not specified - Problem List Review Problem List Initiated/Reviewed/Updated: Yes - My Orders Last 24 Hours: My Active Orders 03/19/20 09:29 Potassium Chloride [Klor-Con M20] 20 meq PO ONETIME ONE - Assessment Assessment:: 03/18/20 * Alert and oriented x3 today * Denies having any complaints * Dr. Lomax consult plan: #1 begin regular Haldol 2 mg at bedtime to help with clarity of thought and elimination of any psychotic or paranoid symptoms. #2 he will continue to follow-up with the patient on an as-needed basis while she remains at [facility]. #3 he would recommend that she follow-up with outpatient psych when she is medically stabilized and discharged back to [facility]. * Urinalysis reveals: Nitrite negative 3+ leukocyte Estrace Urine WBC too numerous to count Urine bacteria not seen Urine culture preliminary: Yeast isolated * The patient is asymptomatic with this urinalysis. * WBC 3.79 Hemoglobin 10.2 Potassium 3.9 Anion gap 18.9 BUN 9 Creatinine 0.9 Magnesium 1.7 * Signs remained stable. * Refused her at bedtime dose of Eliquis last night * Had been refusing medications at the long term stating that she thought they were all poison. * Atrial fib management with amiodarone and Eliquis Plan * Start Haldol 2 mg at bedtime * Discontinue Zosyn * Start Diflucan 200 mg IV x1 dose will reevaluate in 3 days. * Magnesium 2 g IV today * animal services officer for discharge planning back to the long term * PT and OT to evaluate and treat * Dietitian consulting for adequate p.o. caloric needs * Eliquis for atrial fib and DVT prophylaxis * Patient is a DNR * Check labs and replace electrolytes as needed * Discontinue IV fluids Patient will remain admitted to [facility] status. [facility] will accept the patient back on March 22. Plan for discharge then. 03/19/20 * Alert and oriented x3 today * Denies having any complaints * Signs remained stable. * Had a good night, has not refused any medications * Atrial fib management with amiodarone and Eliquis * Potassium 3.6 Plan * animal services officer for discharge planning back to the long term * PT and OT to evaluate and treat * Dietitian consulting for adequate p.o. caloric needs * Eliquis for atrial fib and DVT prophylaxis * Patient is a DNR * Check labs and replace electrolytes as needed * Potassium 20meq po today. Patient will remain admitted to [facility] status. [facility] will accept the patient back on March 22. Plan for discharge then. - Plan Plan:: Atrial fibrillation,Hypertension -on eliquis and amiodarone Diabetes -check blood sugars daily -diabetic diet Dementia,Hallucinations -Haldol 2mg at bedtime Urinary tract infection -UC grew out yeast -urine recheck on mar 21 PROPHYLAXIS DVT-home eliquis CODE STATUS:DNR DISPOSITION: The patient will remain admitted to the [facility] floor. Stabilize on Haldol. Pending discharge Sunday back to [facility]
[2020-03-19] MEDS: Haloperidol 1 MG Tab PO SCH (20:47)
--- NOTE | 2020-03-20 09:09 | PCM.PN ---
- General Info Date of Service: 03/20/20 Admission Dx/Problem (Free Text): Admission Diagnosis/Problem Admission Diagnosis/Problem Urinary tract infection Subjective Update: Patient is an 84-year-old lady who was admitted on March 17, 2020. This was secondary to behavioral issues with urinary tract infection. Patient had been evaluated by psychiatry and has been placed on Haldol. She says she is doing better today. The patient has denied any pain. The patient has been ambulating. - Review of Systems General: Reports: Weakness, Fatigue HEENT: Reports: No Symptoms Pulmonary: Reports: No Symptoms Cardiovascular: Reports: No Symptoms Gastrointestinal: Reports: No Symptoms Genitourinary: Reports: No Symptoms Musculoskeletal: Reports: No Symptoms Skin: Reports: No Symptoms Neurological: Reports: Confusion Psychiatric: Reports: Mood Lability - Patient Data Vitals - Most Recent: Last Vital Signs Temp 37.1 C 03/20/20 08:00 Pulse 78 03/20/20 08:00 Resp 18 03/20/20 08:00 BP 134/73 03/20/20 08:00 Pulse Ox 94 L 03/20/20 08:00 Weight - Most Recent: 51.664 kg I&O - Last 24 Hours: Intake & Output 03/19/20 03/20/20 03/20/20 22:59 06:59 14:59 Intake Total 590 200 Output Total 500 600 Balance 90 -400 Cordell Results Last 24 Hours: Microbiology 03/16/20 16:15 Urine Culture - Preliminary Urine, Clean Catch Sandra Species Not Albicans Med Orders - Current: Current Medications Amiodarone HCl (Cordarone) 200 mg PO DAILY [facility] Last Admin: 03/19/20 09:19 Dose: 200 mg Documented by: Apixaban (Eliquis) 2.5 mg PO BID [facility] Last Admin: 03/19/20 20:47 Dose: 2.5 mg Documented by: Haloperidol (Haldol) 2 mg PO BEDTIME [facility] Last Admin: 03/19/20 20:47 Dose: 2 mg Documented by: Discontinued Medications Haloperidol Lactate (Haldol) Confirm Administered Dose 5 mg .ROUTE .STK-MED ONE Stop: 03/16/20 22:48 Last Admin: 03/16/20 22:54 Dose: Not Given Documented by: Haloperidol Lactate (Haldol) 5 mg IM ONETIME [facility] Stop: 03/16/20 22:51 Last Admin: 03/16/20 22:53 Dose: 5 mg Documented by: Ceftriaxone Sodium 1 gm/ (Sodium Chloride) 100 mls @ 200 mls/hr IV ONETIME ONE Stop: 03/16/20 18:53 Last Admin: 03/16/20 19:12 Dose: 200 mls/hr Documented by: Piperacillin Sod/Tazobactam (Sod 4.5 gm/ Sodium Chloride) 100 mls @ 200 mls/hr IV ONETIME ONE Stop: 03/16/20 20:12 Last Admin: 03/16/20 20:00 Dose: 200 mls/hr Documented by: Sodium Chloride (Normal Saline) 1,000 mls @ 100 mls/hr IV ASDIRECTED [facility] Last Admin: 03/18/20 00:10 Dose: 100 mls/hr Documented by: Piperacillin Sod/Tazobactam (Sod 4.5 gm/ Sodium Chloride) 100 mls @ 25 mls/hr IV Q8H [facility] Last Admin: 03/18/20 13:09 Dose: Not Given Documented by: Magnesium Sulfate (Magnesium Sulfate In Water Premix) 2 gm in 50 mls @ 25 mls/hr IV ONETIME ONE Stop: 03/18/20 09:49 Last Admin: 03/18/20 14:04 Dose: 25 mls/hr Documented by: Fluconazole/Sodium Chloride (200 mg/ Premix) 100 mls @ 100 mls/hr IV ONETIME ONE Stop: 03/18/20 13:59 Last Admin: 03/18/20 12:48 Dose: 100 mls/hr Documented by: Potassium Chloride (Klor-Con M20) 20 meq PO ONETIME ONE Stop: 03/19/20 09:30 Last Admin: 03/19/20 10:28 Dose: 20 meq Documented by: - Exam Quality Assessment: No: Supplemental Oxygen General: Lethargic, Other (Thin). No: Oriented HEENT: Pupils Equal, Pupils Reactive, EOMI. No: Mucous Membr. Moist/[place] (Dry) Neck: Supple, Trachea Midline Lungs: Clear to Auscultation, Normal Respiratory Effort Cardiovascular: Regular Rate, Regular Rhythm GI/Abdominal Exam: Normal Bowel Sounds, Soft, Non-Tender, No Distention (Female) Exam: Deferred Back Exam: No: Normal Inspection (Age-appropriate), Full Range of Motion (Age- appropriate) Extremities: Normal Inspection, No Pedal Edema Skin: Warm, Dry, Intact Neurological: No New Focal Deficit Psy/Mental Status: Alert Sepsis Event Note - Evaluation Sepsis Screening Result: No Definite Risk - Focused Exam Vital Signs: Vital Signs Temp Temp Pulse Pulse Resp BP BP 03/20/20 08:00 37.1 C 78 18 134/73 03/20/20 04:08 36.7 C 79 14 127/67 03/19/20 23:50 37.1 C 81 14 104/55 L Pulse Ox 03/20/20 08:00 94 L 03/20/20 04:08 94 L 03/19/20 23:50 97 - Problem List & Annotations (1) Dementia SNOMED Code(s): 26693304 Code(s): F03.90 - UNSPECIFIED DEMENTIA WITHOUT BEHAVIORAL DISTURBANCE Status: Acute Priority: High Current Visit: Yes Qualifiers: Dementia type: unspecified type Dementia behavioral disturbance: with behavioral disturbance Qualified Code(s): F03.91 - Unspecified dementia with behavioral disturbance (2) Urinary tract infection SNOMED Code(s): 44496598 Code(s): N39.0 - URINARY TRACT INFECTION, SITE NOT SPECIFIED Status: Acute Priority: High Current Visit: Yes Qualifiers: Urinary tract infection type: site unspecified Hematuria presence: without hematuria Qualified Code(s): N39.0 - Urinary tract infection, site not specified (3) Diabetes SNOMED Code(s): 83068220 Code(s): E11.9 - TYPE 2 DIABETES MELLITUS WITHOUT COMPLICATIONS Status: Chronic Priority: Medium Current Visit: Yes Qualifiers: Diabetes mellitus type: type 2 (4) Hypertension SNOMED Code(s): 57125746 Code(s): I10 - ESSENTIAL (PRIMARY) HYPERTENSION Status: Chronic Priority: Medium Current Visit: Yes Qualifiers: Hypertension type: unspecified Qualified Code(s): I10 - Essential (primary) hypertension - Problem List Review Problem List Initiated/Reviewed/Updated: Yes - Assessment Assessment:: 03/18/20 * Alert and oriented x3 today * Denies having any complaints * Dr. Lomax consult plan: #1 begin regular Haldol 2 mg at bedtime to help with clarity of thought and elimination of any psychotic or paranoid symptoms. #2 he will continue to follow-up with the patient on an as-needed basis while she remains at [facility]. #3 he would recommend that she follow-up with outpatient psych when she is medically stabilized and discharged back to [facility]. * Urinalysis reveals: Nitrite negative 3+ leukocyte Estrace Urine WBC too numerous to count Urine bacteria not seen Urine culture preliminary: Yeast isolated * The patient is asymptomatic with this urinalysis. * WBC 3.79 Hemoglobin 10.2 Potassium 3.9 Anion gap 18.9 BUN 9 Creatinine 0.9 Magnesium 1.7 * Signs remained stable. * Refused her at bedtime dose of Eliquis last night * Had been refusing medications at the shelter stating that she thought they were all poison. * Atrial fib management with amiodarone and Eliquis Plan * Start Haldol 2 mg at bedtime * Discontinue Zosyn * Start Diflucan 200 mg IV x1 dose will reevaluate in 3 days. * Magnesium 2 g IV today * account services manager for discharge planning back to the shelter * PT and OT to evaluate and treat * Dietitian consulting for adequate p.o. caloric needs * Eliquis for atrial fib and DVT prophylaxis * Patient is a DNR * Check labs and replace electrolytes as needed * Discontinue IV fluids Patient will remain admitted to [facility] status. [facility] will accept the patient back on March 22. Plan for discharge then. 03/19/20 * Alert and oriented x3 today * Denies having any complaints * Signs remained stable. * Had a good night, has not refused any medications * Atrial fib management with amiodarone and Eliquis * Potassium 3.6 Plan * account services manager for discharge planning back to the shelter * PT and OT to evaluate and treat * Dietitian consulting for adequate p.o. caloric needs * Eliquis for atrial fib and DVT prophylaxis * Patient is a DNR * Check labs and replace electrolytes as needed * Potassium 20meq po today. [facility] will accept the patient back on March 22. Plan for discharge then. - Plan Plan:: Atrial fibrillation,Hypertension -on eliquis and amiodarone Diabetes -check blood sugars daily -diabetic diet Dementia,Hallucinations -Haldol 2mg at bedtime Urinary tract infection -UC grew out yeast -urine recheck on mar 21 PROPHYLAXIS DVT-home eliquis CODE STATUS:DNR DISPOSITION: The patient will remain admitted to the [facility] floor. Stabilize on Haldol. Pending discharge Sunday back to [facility] 03/20/2020 The patient's urinalysis grew out Sandra not albicans and therefore antibiotics have been discontinued. The patient will be kept on her Eliquis for DVT prophylaxis. We will continue with a diabetic diet for her. She is currently on amiodarone for atrial fibrillation. Continue to monitor vital signs. Will consider CBC, CMP, on Sunday. Patient has been encouraged to ambulate.
[2020-03-20] MEDS: Apixaban 2.5 MG Tab PO SCH ×2 (09:41→21:28)
[2020-03-20] MEDS: Amiodarone 200 MG Tab PO SCH (09:41)
[2020-03-20] MEDS: Haloperidol 1 MG Tab PO SCH (21:26)
--- NOTE | 2020-03-21 07:25 | PCM.PN ---
- General Info Date of Service: 03/21/20 Admission Dx/Problem (Free Text): Admission Diagnosis/Problem Admission Diagnosis/Problem Urinary tract infection Subjective Update: The patient is an 84-year-old lady who has been doing much better today. Patient has denied any pain. She has been much more awake and alert. She has been ambulating. Patient has denied any nausea or vomiting. She has been tolerating her diet. Functional Status: Reports: Pain Controlled, Tolerating Diet - Review of Systems General: Reports: Weakness, Fatigue HEENT: Reports: No Symptoms Pulmonary: Reports: No Symptoms Cardiovascular: Reports: No Symptoms Gastrointestinal: Reports: No Symptoms Genitourinary: Reports: No Symptoms Musculoskeletal: Reports: No Symptoms Skin: Reports: No Symptoms Neurological: Reports: No Symptoms Psychiatric: Reports: No Symptoms - Patient Data Vitals - Most Recent: Last Vital Signs Temp 36.9 C 03/21/20 04:42 Pulse 78 03/21/20 04:42 Resp 20 03/21/20 04:42 BP 131/65 03/21/20 04:42 Pulse Ox 94 L 03/21/20 04:42 Weight - Most Recent: 50.077 kg I&O - Last 24 Hours: Intake & Output 03/20/20 03/21/20 03/21/20 22:59 06:59 14:59 Intake Total 200 400 Output Total 200 400 Balance 0 0 Lab Results Last 24 Hours: Laboratory Results - last 24 hr 03/21/20 Range/Units 05:15 Urine Color Yellow (Yellow) Urine Appearance Slt cloudy H (Clear) Urine pH 6.0 (5.0-8.0) Ur Specific [place] 1.025 (1.005-1.030) Urine Protein 1+ H (Negative) Urine Glucose (UA) Negative (Negative) Urine Ketones 1+ H (Negative) Urine Occult Blood Trace-lysed H (Negative) Urine Nitrite Negative (Negative) Urine Bilirubin 1+ H (Negative) Urine Urobilinogen 0.2 (0.2-1.0) Ur Leukocyte Esterase 1+ H (Negative) Urine RBC 5-10 H (0-5) /hpf Urine WBC 75-100 H (0-5) /hpf Ur Squamous Epith Cells 10-20 H (0-5) /hpf Urine Bacteria Moderate H (FEW) /hpf Urine Mucus Not seen (FEW) /hpf [place] Results Last 24 Hours: Microbiology 03/16/20 16:15 Urine Culture - Preliminary Urine, Clean Catch Sandra Species Not Albicans Med Orders - Current: Current Medications Amiodarone HCl (Cordarone) 200 mg PO DAILY [facility] Last Admin: 03/20/20 09:41 Dose: 200 mg Documented by: Apixaban (Eliquis) 2.5 mg PO BID [facility] Last Admin: 03/20/20 21:28 Dose: 2.5 mg Documented by: Haloperidol (Haldol) 2 mg PO BEDTIME [facility] Last Admin: 03/20/20 21:26 Dose: 2 mg Documented by: Discontinued Medications Haloperidol Lactate (Haldol) Confirm Administered Dose 5 mg .ROUTE .STK-MED ONE Stop: 03/16/20 22:48 Last Admin: 03/16/20 22:54 Dose: Not Given Documented by: Haloperidol Lactate (Haldol) 5 mg IM ONETIME STA Stop: 03/16/20 22:51 Last Admin: 03/16/20 22:53 Dose: 5 mg Documented by: Ceftriaxone Sodium 1 gm/ (Sodium Chloride) 100 mls @ 200 mls/hr IV ONETIME ONE Stop: 03/16/20 18:53 Last Admin: 03/16/20 19:12 Dose: 200 mls/hr Documented by: Piperacillin Sod/Tazobactam (Sod 4.5 gm/ Sodium Chloride) 100 mls @ 200 mls/hr IV ONETIME ONE Stop: 03/16/20 20:12 Last Admin: 03/16/20 20:00 Dose: 200 mls/hr Documented by: Sodium Chloride (Normal Saline) 1,000 mls @ 100 mls/hr IV ASDIRECTED [facility] Last Admin: 03/18/20 00:10 Dose: 100 mls/hr Documented by: Piperacillin Sod/Tazobactam (Sod 4.5 gm/ Sodium Chloride) 100 mls @ 25 mls/hr IV Q8H [facility] Last Admin: 03/18/20 13:09 Dose: Not Given Documented by: Magnesium Sulfate (Magnesium Sulfate In Water Premix) 2 gm in 50 mls @ 25 mls/hr IV ONETIME ONE Stop: 03/18/20 09:49 Last Admin: 03/18/20 14:04 Dose: 25 mls/hr Documented by: Fluconazole/Sodium Chloride (200 mg/ Premix) 100 mls @ 100 mls/hr IV ONETIME ONE Stop: 03/18/20 13:59 Last Admin: 03/18/20 12:48 Dose: 100 mls/hr Documented by: Potassium Chloride (Klor-Con M20) 20 meq PO ONETIME ONE Stop: 03/19/20 09:30 Last Admin: 03/19/20 10:28 Dose: 20 meq Documented by: - Exam Quality Assessment: No: Supplemental Oxygen General: Alert, Oriented, Cooperative HEENT: Pupils Equal, Pupils Reactive Neck: Supple, Trachea Midline Lungs: Clear to Auscultation, Normal Respiratory Effort Cardiovascular: Regular Rate, Regular Rhythm GI/Abdominal Exam: Normal Bowel Sounds, Soft, No Distention (Female) Exam: Deferred Back Exam: Normal Inspection, Full Range of Motion Extremities: Normal Inspection, No Pedal Edema Skin: Warm, Dry, Intact Neurological: No New Focal Deficit Psy/Mental Status: Alert, Normal Affect Sepsis Event Note - Evaluation Sepsis Screening Result: No Definite Risk - Focused Exam Vital Signs: Vital Signs Temp Pulse Resp BP Pulse Ox 03/21/20 04:42 36.9 C 78 20 131/65 94 L 03/21/20 00:23 36.6 C 84 20 148/69 H 92 L 03/20/20 21:16 36.9 C 78 22 H 134/81 96 - Problem List & Annotations (1) Dementia SNOMED Code(s): 59648834 Code(s): F03.90 - UNSPECIFIED DEMENTIA WITHOUT BEHAVIORAL DISTURBANCE Status: Acute Priority: High Current Visit: Yes Qualifiers: Dementia type: unspecified type Dementia behavioral disturbance: with behavioral disturbance Qualified Code(s): F03.91 - Unspecified dementia with behavioral disturbance (2) Urinary tract infection SNOMED Code(s): 91089303 Code(s): N39.0 - URINARY TRACT INFECTION, SITE NOT SPECIFIED Status: Acute Priority: High Current Visit: Yes Qualifiers: Urinary tract infection type: site unspecified Hematuria presence: without hematuria Qualified Code(s): N39.0 - Urinary tract infection, site not specified Annotation/Comment:: Sandra species (3) Diabetes SNOMED Code(s): 68497753 Code(s): E11.9 - TYPE 2 DIABETES MELLITUS WITHOUT COMPLICATIONS Status: Chronic Priority: Medium Current Visit: Yes Qualifiers: Diabetes mellitus type: type 2 Diabetes mellitus 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 Lomax consult plan: #1 begin regular Haldol 2 mg at bedtime to help with clarity of thought and elimination of any psychotic or paranoid symptoms. #2 he will continue to follow-up with the patient on an as-needed basis while she remains at [facility]. #3 he would recommend that she follow-up with outpatient psych when she is medically stabilized and discharged back to [facility]. * Urinalysis reveals: Nitrite negative 3+ leukocyte Estrace Urine WBC too numerous to count Urine bacteria not seen Urine culture preliminary: Yeast isolated * The patient is asymptomatic with this urinalysis. * WBC 3.79 Hemoglobin 10.2 Potassium 3.9 Anion gap 18.9 BUN 9 Creatinine 0.9 Magnesium 1.7 * Signs remained stable. * Refused her at bedtime dose of Eliquis last night * Had been refusing medications at the care home stating that she thought they were all poison. * Atrial fib management with amiodarone and Eliquis Plan * Start Haldol 2 mg at bedtime * Discontinue Zosyn * Start Diflucan 200 mg IV x1 dose will reevaluate in 3 days. * Magnesium 2 g IV today * employment services director for discharge planning back to the care home * PT and OT to evaluate and treat * Dietitian consulting for adequate p.o. caloric needs * Eliquis for atrial fib and DVT prophylaxis * Patient is a DNR * Check labs and replace electrolytes as needed * Discontinue IV fluids Patient will remain admitted to [facility] status. [facility] will accept the patient back on Sunday, March 22. Plan for discharge then. 03/19/20 * Alert and oriented x3 today * Denies having any complaints * Signs remained stable. * Had a good night, has not refused any medications * Atrial fib management with amiodarone and Eliquis * Potassium 3.6 Plan * employment services director for discharge planning back to the care home * PT and OT to evaluate and treat * Dietitian consulting for adequate p.o. caloric needs * Eliquis for atrial fib and DVT prophylaxis * Patient is a DNR * Check labs and replace electrolytes as needed * Potassium 20meq po today. Patient will remain admitted to [facility] status. [facility] will accept the patient back on March 22. Plan for discharge then. - Plan Plan:: Atrial fibrillation,Hypertension -on eliquis and amiodarone Diabetes -check blood sugars daily -diabetic diet Dementia,Hallucinations -Haldol 2mg at bedtime Urinary tract infection -UC grew out yeast -urine recheck on mar 21 PROPHYLAXIS DVT-home eliquis CODE STATUS:DNR DISPOSITION: The patient will remain admitted to the [facility] floor. Stabilize on Haldol. Pending discharge Sunday back to [facility] 03/20/2020 The patient's urinalysis grew out Sandra not albicans and therefore antibiotics have been discontinued. The patient will be kept on her Eliquis for DVT prophylaxis. We will continue with a diabetic diet for her. She is currently on amiodarone for atrial fibrillation. Continue to monitor vital signs. Will consider CBC, CMP, on Sunday. Patient has been encouraged to ambulate. 03/21/2020 The patient is currently awaiting placement. She has been encouraged to continue ambulating. The patient's amiodarone will be continued. A recent urinalysis is likely not a clean-catch as her had been epithelial cells noted. Patient's urinalysis had grown Sandra not albicans. She does not need antibiotics at this time. We will continue to monitor her vital signs.
[2020-03-21] MEDS: Apixaban 2.5 MG Tab PO SCH ×2 (09:37→21:20)
[2020-03-21] MEDS: Amiodarone 200 MG Tab PO SCH (09:37)
[2020-03-21] MEDS: Haloperidol 1 MG Tab PO SCH (21:20)
[2020-03-22] MEDS ORDERED: Potassium Chloride 10 MEQ in Premix Bag 1 BAG IV SCH (07:45)
[2020-03-22] MEDS ORDERED: Sodium Chloride 0.9% 1,000 ML IV SCH (09:00)
[2020-03-22] MEDS: Apixaban 2.5 MG Tab PO SCH ×2 (09:03→20:56)
[2020-03-22] MEDS: Amiodarone 200 MG Tab PO SCH (09:03)
[2020-03-22] MEDS ORDERED: Magnesium Sulfate/Water 2 GM/50 ML BAG IV ONE (10:00)
[2020-03-22] MEDS ORDERED: Potassium Chloride 100 ML ONE (10:10)
--- NOTE | 2020-03-22 10:23 | PCM.PN ---
<ShawnRedd M - Last Filed: 03/22/20 12:32> - General Info Date of Service: 03/22/20 Admission Dx/Problem (Free Text): Admission Diagnosis/Problem Admission Diagnosis/Problem Urinary tract infection Subjective Update: Doing ok. Did not sleep well last night. Functional Status: Reports: Pain Controlled, Tolerating Diet, Ambulating, Urinating - Review of Systems General: Reports: No Symptoms HEENT: Reports: No Symptoms Pulmonary: Reports: No Symptoms Cardiovascular: Reports: No Symptoms Gastrointestinal: Reports: No Symptoms Genitourinary: Reports: No Symptoms Musculoskeletal: Reports: No Symptoms Skin: Reports: No Symptoms Neurological: Reports: No Symptoms Psychiatric: Reports: Anxiety, Agitation, Hallucinations - Patient Data Vitals - Most Recent: Last Vital Signs Temp 98.6 F 03/22/20 07:55 Pulse 88 03/22/20 07:55 Resp 16 03/22/20 07:55 BP 131/64 03/22/20 07:55 Pulse Ox 92 L 03/22/20 07:55 Weight - Most Recent: 52.027 kg I&O - Last 24 Hours: Intake & Output 03/21/20 03/22/20 03/22/20 22:59 06:59 14:59 Intake Total 260 100 0 Output Total 100 500 Balance 160 -400 0 Lab Results Last 24 Hours: Laboratory Results - last 24 hr 03/22/20 03/22/20 03/22/20 Range/Units 03:50 04:00 04:00 WBC 4.43 (3.98-10.04) K/mm3 RBC 3.94 L (3.98-5.22) M/mm3 Hgb 11.3 (11.2-15.7) gm/dl Hct 36.4 (34.1-44.9) % MCV 92.4 (79.4-94.8) fl MCH 28.7 (25.6-32.2) pg MCHC 31.0 L (32.2-35.5) g/dl RDW Std Deviation 56.6 H (36.4-46.3) fL Plt Count 258 (182-369) K/mm3 MPV 8.9 L (9.4-12.3) fl Neut % (Auto) 50.5 (34.0-71.1) % Lymph % (Auto) 35.0 (19.3-51.7) % Ashley % (Auto) 10.2 (4.7-12.5) % Eos % (Auto) 3.4 (0.7-5.8) Baso % (Auto) 0.9 (0.1-1.2) % Neut # (Auto) 2.24 (1.56-6.13) K/mm3 Lymph # (Auto) 1.55 (1.18-3.74) K/mm3 Ashley # (Auto) 0.45 H (0.24-0.36) K/mm3 Eos # (Auto) 0.15 (0.04-0.36) K/mm3 Baso # (Auto) 0.04 (0.01-0.08) K/mm3 Sodium 139 (136-145) mEq/L Potassium 3.1 L (3.5-5.1) mEq/L Chloride 104 (98-107) mEq/L Carbon Dioxide 26 (21-32) mEq/L Anion Gap 12.1 (5-15) BUN 10 (7-18) mg/dL Creatinine 0.9 (0.55-1.02) mg/dL Est Cr Clr Drug Dosing 36.78 mL/min Estimated GFR (MDRD) 60 (>60) mL/min BUN/Creatinine Ratio 11.1 L (14-18) Glucose 116 H (83-115) mg/dL Calcium 8.1 L (8.5-10.1) mg/dL Magnesium (1.8-2.4) mg/dl Total Bilirubin 0.6 (0.2-1.0) mg/dL AST 12 L (15-37) U/L ALT 22 (14-59) U/L Alkaline Phosphatase 51 (46-116) U/L Total Protein 5.3 L (6.4-8.2) g/dl Albumin 2.3 L (3.4-5.0) g/dl Globulin 3.0 gm/dL Albumin/Globulin Ratio 0.8 L (1-2) SARS-CoV-2 RNA (BLANCA) Negative (NEGATIVE) 03/22/20 Range/Units 04:00 WBC (3.98-10.04) K/mm3 RBC (3.98-5.22) M/mm3 Hgb (11.2-15.7) gm/dl Hct (34.1-44.9) % MCV (79.4-94.8) fl MCH (25.6-32.2) pg MCHC (32.2-35.5) g/dl RDW Std Deviation (36.4-46.3) fL Plt Count (182-369) K/mm3 MPV (9.4-12.3) fl Neut % (Auto) (34.0-71.1) % Lymph % (Auto) (19.3-51.7) % Ashley % (Auto) (4.7-12.5) % Eos % (Auto) (0.7-5.8) Baso % (Auto) (0.1-1.2) % Neut # (Auto) (1.56-6.13) K/mm3 Lymph # (Auto) (1.18-3.74) K/mm3 Ashley # (Auto) (0.24-0.36) K/mm3 Eos # (Auto) (0.04-0.36) K/mm3 Baso # (Auto) (0.01-0.08) K/mm3 Sodium (136-145) mEq/L Potassium (3.5-5.1) mEq/L Chloride (98-107) mEq/L Carbon Dioxide (21-32) mEq/L Anion Gap (5-15) BUN (7-18) mg/dL Creatinine (0.55-1.02) mg/dL Est Cr Clr Drug Dosing mL/min Estimated GFR (MDRD) (>60) mL/min BUN/Creatinine Ratio (14-18) Glucose (83-115) mg/dL Calcium (8.5-10.1) mg/dL Magnesium 1.7 L (1.8-2.4) mg/dl Total Bilirubin (0.2-1.0) mg/dL AST (15-37) U/L ALT (14-59) U/L Alkaline Phosphatase (46-116) U/L Total Protein (6.4-8.2) g/dl Albumin (3.4-5.0) g/dl Globulin gm/dL Albumin/Globulin Ratio (1-2) SARS-CoV-2 RNA (BLANCA) (NEGATIVE) Med Orders - Current: Current Medications Amiodarone HCl (Cordarone) 200 mg PO DAILY [facility] Last Admin: 03/22/20 09:03 Dose: 200 mg Documented by: Apixaban (Eliquis) 2.5 mg PO BID [facility] Last Admin: 03/22/20 09:03 Dose: 2.5 mg Documented by: Haloperidol (Haldol) 2 mg PO BEDTIME [facility] Last Admin: 03/21/20 21:20 Dose: 2 mg Documented by: Sodium Chloride (Normal Saline) 1,000 mls @ 50 mls/hr IV ASDIRECTED [facility] Last Admin: 03/22/20 09:06 Dose: 50 mls/hr Documented by: Magnesium Sulfate (Magnesium Sulfate In Water Premix) 2 gm in 50 mls @ 25 mls/hr IV ONETIME ONE Stop: 03/22/20 11:59 Potassium Chloride 10 meq/ (Premix) 100 mls @ 100 mls/hr IV Q1H [facility] Stop: 03/22/20 15:29 Discontinued Medications Haloperidol Lactate (Haldol) Confirm Administered Dose 5 mg .ROUTE .STK-MED ONE Stop: 03/16/20 22:48 Last Admin: 03/16/20 22:54 Dose: Not Given Documented by: Haloperidol Lactate (Haldol) 5 mg IM ONETIME STA Stop: 03/16/20 22:51 Last Admin: 03/16/20 22:53 Dose: 5 mg Documented by: Ceftriaxone Sodium 1 gm/ (Sodium Chloride) 100 mls @ 200 mls/hr IV ONETIME ONE Stop: 03/16/20 18:53 Last Admin: 03/16/20 19:12 Dose: 200 mls/hr Documented by: Piperacillin Sod/Tazobactam (Sod 4.5 gm/ Sodium Chloride) 100 mls @ 200 mls/hr IV ONETIME ONE Stop: 03/16/20 20:12 Last Admin: 03/16/20 20:00 Dose: 200 mls/hr Documented by: Sodium Chloride (Normal Saline) 1,000 mls @ 100 mls/hr IV ASDIRECTED [facility] Last Admin: 03/18/20 00:10 Dose: 100 mls/hr Documented by: Piperacillin Sod/Tazobactam (Sod 4.5 gm/ Sodium Chloride) 100 mls @ 25 mls/hr IV Q8H [facility] Last Admin: 03/18/20 13:09 Dose: Not Given Documented by: Magnesium Sulfate (Magnesium Sulfate In Water Premix) 2 gm in 50 mls @ 25 mls/hr IV ONETIME ONE Stop: 03/18/20 09:49 Last Admin: 03/18/20 14:04 Dose: 25 mls/hr Documented by: Fluconazole/Sodium Chloride (200 mg/ Premix) 100 mls @ 100 mls/hr IV ONETIME ONE Stop: 03/18/20 13:59 Last Admin: 03/18/20 12:48 Dose: 100 mls/hr Documented by: Potassium Chloride 10 meq/ (Premix) 100 mls @ 100 mls/hr IV ASDIRECTED [facility] Stop: 03/27/20 08:44 Last Admin: 03/22/20 09:03 Dose: 100 mls/hr Documented by: Potassium Chloride (Klor-Con M20) 20 meq PO ONETIME ONE Stop: 03/19/20 09:30 Last Admin: 03/19/20 10:28 Dose: 20 meq Documented by: - Exam Quality Assessment: DVT Prophylaxis. No: Supplemental Oxygen General: Alert, Oriented, Cooperative, No Acute Distress HEENT: Pupils Equal, Pupils Reactive, Mucous Membr. Moist/[place] Neck: Supple, Trachea Midline. No: Lymphadenopathy Lungs: Clear to Auscultation, Normal Respiratory Effort Cardiovascular: Regular Rate, Irregular Rhythm, Murmurs GI/Abdominal Exam: Normal Bowel Sounds, Soft, Non-Tender, No Distention (Female) Exam: Deferred Back Exam: Normal Inspection, Full Range of Motion Extremities: Normal Inspection, Normal Range of Motion, Non-Tender, No Pedal Edema, Normal Capillary Refill Peripheral Pulses: 2+: Radial (L), Radial (R), Dorsalis Pedis (L), Dorsalis Pedis (R) Skin: Warm, Dry, Intact Neurological: No New Focal Deficit Psy/Mental Status: Alert, Normal Affect, Normal Mood Sepsis Event Note - Evaluation Sepsis Screening Result: No Definite Risk - Focused Exam Vital Signs: Vital Signs Temp Pulse Resp BP Pulse Ox 03/22/20 07:55 98.6 F 88 16 131/64 92 L 03/22/20 02:05 97.9 F 89 16 149/77 H 95 - Problem List & Annotations (1) Atrial fibrillation SNOMED Code(s): 20276363 Code(s): I48.91 - UNSPECIFIED ATRIAL FIBRILLATION Status: Chronic Priority: Medium Current Visit: Yes Qualifiers: Atrial fibrillation type: unspecified Qualified Code(s): I48.91 - Unspecified atrial fibrillation (2) Hypertension SNOMED Code(s): 61504325 Code(s): I10 - ESSENTIAL (PRIMARY) HYPERTENSION Status: Chronic Priority: Medium Current Visit: Yes Qualifiers: Hypertension type: unspecified Qualified Code(s): I10 - Essential (primary) hypertension (3) Diabetes SNOMED Code(s): 79192829 Code(s): E11.9 - TYPE 2 DIABETES MELLITUS WITHOUT COMPLICATIONS Status: Chronic Priority: Medium Current Visit: Yes Qualifiers: Diabetes mellitus type: type 2 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 Diabetes mellitus complication status: without complication Qualified Code(s): E11.9 - Type 2 diabetes mellitus without complications (4) Dementia SNOMED Code(s): 87363379 Code(s): F03.90 - UNSPECIFIED DEMENTIA WITHOUT BEHAVIORAL DISTURBANCE Status: Acute Priority: High Current Visit: Yes Qualifiers: Dementia type: unspecified type Dementia behavioral disturbance: with behavioral disturbance Qualified Code(s): F03.91 - Unspecified dementia with behavioral disturbance (5) Hallucinations SNOMED Code(s): 9061713 Code(s): R44.3 - HALLUCINATIONS, UNSPECIFIED Status: Acute Priority: High Current Visit: Yes (6) Urinary tract infection SNOMED Code(s): 83847530 Code(s): N39.0 - URINARY TRACT INFECTION, SITE NOT SPECIFIED Status: Acute Priority: High Current Visit: Yes Qualifiers: Urinary tract infection type: site unspecified Hematuria presence: without hematuria Qualified Code(s): N39.0 - Urinary tract infection, site not specified Annotation/Comment:: Sandra species - Problem List Review Problem List Initiated/Reviewed/Updated: Yes - My Orders Last 24 Hours: My Active Orders 03/22/20 09:00 Sodium Chloride 0.9% [Normal Saline] 1,000 ml IV ASDIRECTED 03/22/20 10:00 Magnesium Sulfate/Water [Magnesium Sulfate in Water Premix] 2 gm in 50 ml IV ONETIME 03/22/20 10:30 Potassium Chloride [KCl 10 MEQ in Water 100 ML] 10 meq Premix Bag 1 bag IV Q1H - Assessment Assessment:: 03/18/20 * Alert and oriented x3 today * Denies having any complaints * Dr. Lomax consult plan: #1 begin regular Haldol 2 mg at bedtime to help with clarity of thought and elimination of any psychotic or paranoid symptoms. #2 he will continue to follow-up with the patient on an as-needed basis while she remains at [facility]. #3 he would recommend that she follow-up with outpatient psych when she is medically stabilized and discharged back to [facility]. * Urinalysis reveals: Nitrite negative 3+ leukocyte Estrace Urine WBC too numerous to count Urine bacteria not seen Urine culture preliminary: Yeast isolated * The patient is asymptomatic with this urinalysis. * WBC 3.79 Hemoglobin 10.2 Potassium 3.9 Anion gap 18.9 BUN 9 Creatinine 0.9 Magnesium 1.7 * Signs remained stable. * Refused her at bedtime dose of Eliquis last night * Had been refusing medications at the [facility] stating that she thought they were all poison. * Atrial fib management with amiodarone and Eliquis Plan * Start Haldol 2 mg at bedtime * Discontinue Zosyn * Start Diflucan 200 mg IV x1 dose will reevaluate in 3 days. * Magnesium 2 g IV today * services engineer for discharge planning back to the [facility] * PT and OT to evaluate and treat * Dietitian consulting for adequate p.o. caloric needs * Eliquis for atrial fib and DVT prophylaxis * Patient is a DNR * Check labs and replace electrolytes as needed * Discontinue IV fluids Patient will remain admitted to [facility] status. [facility] will accept the patient back on March 22. Plan for discharge then. 03/19/20 * Alert and oriented x3 today * Denies having any complaints * Signs remained stable. * Had a good night, has not refused any medications * Atrial fib management with amiodarone and Eliquis * Potassium 3.6 Plan * services engineer for discharge planning back to the [facility] * PT and OT to evaluate and treat * Dietitian consulting for adequate p.o. caloric needs * Eliquis for atrial fib and DVT prophylaxis * Patient is a DNR * Check labs and replace electrolytes as needed * Potassium 20meq po today. Patient will remain admitted to [facility] status. [facility] will accept the patient back on March 22. Plan for discharge then. 03/20/2020 The patient's urinalysis grew out Sandra not albicans and therefore antibiotics have been discontinued. The patient will be kept on her Eliquis for DVT prophylaxis. We will continue with a diabetic diet for her. She is currently on amiodarone for atrial fibrillation. Continue to monitor vital signs. Will consider CBC, CMP, on Sunday. Patient has been encouraged to ambulate. 03/21/2020 The patient is currently awaiting placement. She has been encouraged to continue ambulating. The patient's amiodarone will be continued. A recent urinalysis is likely not a clean-catch as her had been epithelial cells noted. Patient's urinalysis had grown Sandra not albicans. She does not need antibiotics at this time. We will continue to monitor her vital signs. 03/22/20 * Alert and oriented x3 today * She is very tired today. States she did not sleep well last night. * Signs remained stable. * Atrial fib management with amiodarone and Eliquis * Potassium 3.1 * Magnesium 1.7 Plan * services engineer for discharge planning back to the [facility] versus [place] * Dr. Lomax to consult regarding further hallucinations * PT and OT to evaluate and treat * Dietitian consulting for adequate p.o. caloric needs * Eliquis for atrial fib and DVT prophylaxis * Patient is a DNR * Check labs and replace electrolytes as needed * Potassium 10meq IV x 6 doses today * Magnesium 2gm IV today Patient will remain admitted to [facility]. Discharge is on hold for now. Need to replace potassium and magnesium. Patient potentially being discharged to [facility]. services engineer to follow up regarding placement. - Plan Plan:: Atrial fibrillation,Hypertension -on eliquis and amiodarone Diabetes -check blood sugars daily -diabetic diet Dementia,Hallucinations -Haldol 2mg at bedtime -Dr. Lomax to consult regarding ongoing hallucinations Urinary tract infection -UC grew out yeast -repeat UA negative. No antibiotics restarted at this time. PROPHYLAXIS DVT-home eliquis CODE STATUS:DNR DISPOSITION: The patient will remain admitted to the [facility] floor. Stabilize on Haldol. Pending discharge Sunday back to [facility] 03/20/2020 The patient's urinalysis grew out Sandra not albicans and therefore antibiotics have been discontinued. The patient will be kept on her Eliquis for DVT prophylaxis. We will continue with a diabetic diet for her. She is currently on amiodarone for atrial fibrillation. Continue to monitor vital signs. Will consider CBC, CMP, on Sunday. Patient has been encouraged to ambulate. 03/21/2020 The patient is currently awaiting placement. She has been encouraged to continue ambulating. The patient's amiodarone will be continued. A recent urinalysis is likely not a clean-catch as her had been epithelial cells noted. Patient's urinalysis had grown Sandra not albicans. She does not need antibiotics at this time. We will continue to monitor her vital signs. Atrial fibrillation,Hypertension -on eliquis and amiodarone Diabetes -check blood sugars daily -diabetic diet Dementia,Hallucinations -Haldol 2mg at bedtime -Dr. Lomax to consult regarding ongoing hallucinations Urinary tract infection -UC grew out yeast -repeat UA negative. No antibiotics restarted at this time. PROPHYLAXIS DVT-home eliquis CODE STATUS:DNR DISPOSITION: The patient will remain admitted to the [facility] floor. Pending discharge potentially tomorrow to [facility] versus [facility]. <Enrique Feliz - Last Filed: 03/22/20 17:20> - Patient Data Vitals - Most Recent: Last Vital Signs Temp 36.6 C 03/22/20 12:09 Pulse 84 03/22/20 12:09 Resp 14 03/22/20 12:09 BP 122/69 03/22/20 12:09 Pulse Ox 95 03/22/20 12:09 I&O - Last 24 Hours: Intake & Output 03/22/20 03/22/20 03/22/20 06:59 14:59 22:59 Intake Total 100 0 235 Output Total 500 850 Balance -400 0 -615 Lab Results Last 24 Hours: Laboratory Results - last 24 hr 03/22/20 03/22/20 03/22/20 Range/Units 03:50 04:00 04:00 WBC 4.43 (3.98-10.04) K/mm3 RBC 3.94 L (3.98-5.22) M/mm3 Hgb 11.3 (11.2-15.7) gm/dl Hct 36.4 (34.1-44.9) % MCV 92.4 (79.4-94.8) fl MCH 28.7 (25.6-32.2) pg MCHC 31.0 L (32.2-35.5) g/dl RDW Std Deviation 56.6 H (36.4-46.3) fL Plt Count 258 (182-369) K/mm3 MPV 8.9 L (9.4-12.3) fl Neut % (Auto) 50.5 (34.0-71.1) % Lymph % (Auto) 35.0 (19.3-51.7) % Ashley % (Auto) 10.2 (4.7-12.5) % Eos % (Auto) 3.4 (0.7-5.8) Baso % (Auto) 0.9 (0.1-1.2) % Neut # (Auto) 2.24 (1.56-6.13) K/mm3 Lymph # (Auto) 1.55 (1.18-3.74) K/mm3 Ashley # (Auto) 0.45 H (0.24-0.36) K/mm3 Eos # (Auto) 0.15 (0.04-0.36) K/mm3 Baso # (Auto) 0.04 (0.01-0.08) K/mm3 Sodium 139 (136-145) mEq/L Potassium 3.1 L (3.5-5.1) mEq/L Chloride 104 (98-107) mEq/L Carbon Dioxide 26 (21-32) mEq/L Anion Gap 12.1 (5-15) BUN 10 (7-18) mg/dL Creatinine 0.9 (0.55-1.02) mg/dL Est Cr Clr Drug Dosing 36.78 mL/min Estimated GFR (MDRD) 60 (>60) mL/min BUN/Creatinine Ratio 11.1 L (14-18) Glucose 116 H (83-115) mg/dL Calcium 8.1 L (8.5-10.1) mg/dL Magnesium (1.8-2.4) mg/dl Total Bilirubin 0.6 (0.2-1.0) mg/dL AST 12 L (15-37) U/L ALT 22 (14-59) U/L Alkaline Phosphatase 51 (46-116) U/L Total Protein 5.3 L (6.4-8.2) g/dl Albumin 2.3 L (3.4-5.0) g/dl Globulin 3.0 gm/dL Albumin/Globulin Ratio 0.8 L (1-2) SARS-CoV-2 RNA (BLANCA) Negative (NEGATIVE) 03/22/20 Range/Units 04:00 WBC (3.98-10.04) K/mm3 RBC (3.98-5.22) M/mm3 Hgb (11.2-15.7) gm/dl Hct (34.1-44.9) % MCV (79.4-94.8) fl MCH (25.6-32.2) pg MCHC (32.2-35.5) g/dl RDW Std Deviation (36.4-46.3) fL Plt Count (182-369) K/mm3 MPV (9.4-12.3) fl Neut % (Auto) (34.0-71.1) % Lymph % (Auto) (19.3-51.7) % Ashley % (Auto) (4.7-12.5) % Eos % (Auto) (0.7-5.8) Baso % (Auto) (0.1-1.2) % Neut # (Auto) (1.56-6.13) K/mm3 Lymph # (Auto) (1.18-3.74) K/mm3 Ashley # (Auto) (0.24-0.36) K/mm3 Eos # (Auto) (0.04-0.36) K/mm3 Baso # (Auto) (0.01-0.08) K/mm3 Sodium (136-145) mEq/L Potassium (3.5-5.1) mEq/L Chloride (98-107) mEq/L Carbon Dioxide (21-32) mEq/L Anion Gap (5-15) BUN (7-18) mg/dL Creatinine (0.55-1.02) mg/dL Est Cr Clr Drug Dosing mL/min Estimated GFR (MDRD) (>60) mL/min BUN/Creatinine Ratio (14-18) Glucose (83-115) mg/dL Calcium (8.5-10.1) mg/dL Magnesium 1.7 L (1.8-2.4) mg/dl Total Bilirubin (0.2-1.0) mg/dL AST (15-37) U/L ALT (14-59) U/L Alkaline Phosphatase (46-116) U/L Total Protein (6.4-8.2) g/dl Albumin (3.4-5.0) g/dl Globulin gm/dL Albumin/Globulin Ratio (1-2) SARS-CoV-2 RNA (BLANCA) (NEGATIVE) Med Orders - Current: Current Medications Amiodarone HCl (Cordarone) 200 mg PO DAILY [facility] Last Admin: 03/22/20 09:03 Dose: 200 mg Documented by: Apixaban (Eliquis) 2.5 mg PO BID [facility] Last Admin: 03/22/20 09:03 Dose: 2.5 mg Documented by: Haloperidol (Haldol) 2 mg PO BEDTIME [facility] Last Admin: 03/21/20 21:20 Dose: 2 mg Documented by: Sodium Chloride (Normal Saline) 1,000 mls @ 50 mls/hr IV ASDIRECTED [facility] Last Infusion: 03/22/20 15:22 Dose: 50 mls/hr Documented by: Discontinued Medications Haloperidol Lactate (Haldol) Confirm Administered Dose 5 mg .ROUTE .STK-MED ONE Stop: 03/16/20 22:48 Last Admin: 03/16/20 22:54 Dose: Not Given Documented by: Haloperidol Lactate (Haldol) 5 mg IM ONETIME STA Stop: 03/16/20 22:51 Last Admin: 03/16/20 22:53 Dose: 5 mg Documented by: Ceftriaxone Sodium 1 gm/ (Sodium Chloride) 100 mls @ 200 mls/hr IV ONETIME ONE Stop: 03/16/20 18:53 Last Admin: 03/16/20 19:12 Dose: 200 mls/hr Documented by: Piperacillin Sod/Tazobactam (Sod 4.5 gm/ Sodium Chloride) 100 mls @ 200 mls/hr IV ONETIME ONE Stop: 03/16/20 20:12 Last Admin: 03/16/20 20:00 Dose: 200 mls/hr Documented by: Sodium Chloride (Normal Saline) 1,000 mls @ 100 mls/hr IV ASDIRECTED [facility] Last Admin: 03/18/20 00:10 Dose: 100 mls/hr Documented by: Piperacillin Sod/Tazobactam (Sod 4.5 gm/ Sodium Chloride) 100 mls @ 25 mls/hr IV Q8H [facility] Last Admin: 03/18/20 13:09 Dose: Not Given Documented by: Magnesium Sulfate (Magnesium Sulfate In Water Premix) 2 gm in 50 mls @ 25 mls/hr IV ONETIME ONE Stop: 03/18/20 09:49 Last Admin: 03/18/20 14:04 Dose: 25 mls/hr Documented by: Fluconazole/Sodium Chloride (200 mg/ Premix) 100 mls @ 100 mls/hr IV ONETIME ONE Stop: 03/18/20 13:59 Last Admin: 03/18/20 12:48 Dose: 100 mls/hr Documented by: Potassium Chloride 10 meq/ (Premix) 100 mls @ 100 mls/hr IV ASDIRECTED [facility] Stop: 03/27/20 08:44 Last Infusion: 03/22/20 10:18 Dose: Infused Documented by: Magnesium Sulfate (Magnesium Sulfate In Water Premix) 2 gm in 50 mls @ 25 mls/hr IV ONETIME ONE Stop: 03/22/20 11:59 Last Admin: 03/22/20 10:15 Dose: 25 mls/hr Documented by: Potassium Chloride 10 meq/ (Premix) 100 mls @ 100 mls/hr IV Q1H [facility] Stop: 03/22/20 15:29 Last Infusion: 03/22/20 15:22 Dose: 50 mls/hr Documented by: Potassium Chloride (Kcl 10 Meq In Water 100 Ml) Confirm Administered Dose 100 mls @ as directed .ROUTE .STK-MED ONE Stop: 03/22/20 10:11 Last Admin: 03/22/20 10:15 Dose: Not Given Documented by: Potassium Chloride (Klor-Con M20) 20 meq PO ONETIME ONE Stop: 03/19/20 09:30 Last Admin: 03/19/20 10:28 Dose: 20 meq Documented by: Sepsis Event Note - Focused Exam Vital Signs: Vital Signs Temp Pulse Resp BP Pulse Ox 03/22/20 12:09 36.6 C 84 14 122/69 95 03/22/20 07:55 37.0 C 88 16 131/64 92 L - Problem List & Annotations (1) Dementia SNOMED Code(s): 91286566 Code(s): F03.90 - UNSPECIFIED DEMENTIA WITHOUT BEHAVIORAL DISTURBANCE Status: Acute Priority: High Current Visit: Yes Qualifiers: Dementia type: unspecified type Dementia behavioral disturbance: with behavioral disturbance Qualified Code(s): F03.91 - Unspecified dementia with behavioral disturbance (2) Urinary tract infection SNOMED Code(s): 71191008 Code(s): N39.0 - URINARY TRACT INFECTION, SITE NOT SPECIFIED Status: Acute Priority: High Current Visit: Yes Qualifiers: Urinary tract infection type: site unspecified Hematuria presence: without hematuria Qualified Code(s): N39.0 - Urinary tract infection, site not specified Annotation/Comment:: Sandra species (3) Diabetes SNOMED Code(s): 23123150 Code(s): E11.9 - TYPE 2 DIABETES MELLITUS WITHOUT COMPLICATIONS Status: Chronic Priority: Medium Current Visit: Yes Qualifiers: Diabetes mellitus type: type 2 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 I have reviewed and agree with the assessment and plan as outlined for this patient by her. Please see orders.
[2020-03-22] MEDS: Potassium Chloride 10 MEQ in Premix Bag 1 BAG IV SCH ×5 (10:44→17:25)
[2020-03-22] MEDS: Haloperidol 1 MG Tab PO SCH (20:56)
[2020-03-23] MEDS ORDERED: Magnesium Sulfate/Water 2 GM/50 ML BAG IV ONE (06:46)
[2020-03-23] MEDS ORDERED: Potassium Chloride 20 MEQ Tab.ER PO ONE ×2 (06:48→09:15)
[2020-03-23] MEDS: Apixaban 2.5 MG Tab PO SCH (09:17)
[2020-03-23] MEDS: Amiodarone 200 MG Tab PO SCH (09:17)
--- NOTE | 2020-03-23 12:33 | PCM.DCSUM1 ---
<Redd Escobar - Last Filed: 03/23/20 12:33> Discharge Summary - Hospital Course HPI Initial Comments: 84-year-old female brought in by the [facility] from the alf. The patient has been having some behavior problems at the alf. Today she was swinging her purse at residents and staff. The patient spent about 3 weeks in the hospital at [facility] in [place] was discharged the middle last month after being diagnosed with atrial fibrillation and some psychiatric issues she was discharged on amiodarone and Seroquel. The Seroquel was tapered off because of potential reaction with the amiodarone and she was started on mirtazapine. However this was DC'd because of poor results the patient was having significant hallucinations with this. Today the patient has not been acting right and has been aggressive towards the staff and other residents. At this time in the time my evaluation the patient is answering questions appropriately. She has some vague memories of what she calls a dreams of people trying to hurt her and possibly other family members. And she did voice visions like this to staff at the alf. Patient denies any suicidal wishes or thoughts at this time. Diagnosis: Stroke: No - Discharge Data Discharge Date: 03/23/20 (Admit date: 03/16/20) Discharge Disposition: DC/Tfer to [facility] Condition: Good - Referral to Home Health Primary Care Physician: Riley Pham MD - Discharge Diagnosis/Problem(s) (1) Atrial fibrillation SNOMED Code(s): 59916590 ICD Code: I48.91 - UNSPECIFIED ATRIAL FIBRILLATION Status: Chronic Priority: Medium Qualifiers: Atrial fibrillation type: unspecified Qualified Code(s): I48.91 - Unspecified atrial fibrillation (2) Hypertension SNOMED Code(s): 52818188 ICD Code: I10 - ESSENTIAL (PRIMARY) HYPERTENSION Status: Chronic Priority : Medium Qualifiers: Hypertension type: unspecified Qualified Code(s): I10 - Essential (primary) hypertension (3) Diabetes SNOMED Code(s): 24100687 ICD Code: E11.9 - TYPE 2 DIABETES MELLITUS WITHOUT COMPLICATIONS Status: Chronic Priority: Medium Qualifiers: Diabetes mellitus type: type 2 Diabetes mellitus residential insulin use: without intermediate teacher use Diabetes mellitus complication status: without complication Qualified Code(s): E11.9 - Type 2 diabetes mellitus without complications (4) Dementia SNOMED Code(s): 45768413 ICD Code: F03.90 - UNSPECIFIED DEMENTIA WITHOUT BEHAVIORAL DISTURBANCE Status: Acute Priority: High Qualifiers: Dementia type: unspecified type Dementia behavioral disturbance: with beh avioral disturbance Qualified Code(s): F03.91 - Unspecified dementia with behavioral disturbance (5) Hallucinations SNOMED Code(s): 3647211 ICD Code: R44.3 - HALLUCINATIONS, UNSPECIFIED Status: Acute Priority: High (6) Urinary tract infection SNOMED Code(s): 17974173 ICD Code: N39.0 - URINARY TRACT INFECTION, SITE NOT SPECIFIED Status: Acute Priority: High Problem Details: Sandra species Qualifiers: Urinary tract infection type: site unspecified Hematuria presence: without hematuria Qualified Code(s): N39.0 - Urinary tract infection, site not specified - Patient Summary/Data Consults: Consultations 03/17/20 08:34 OT Evaluation and Treatment [CONS] Routine PT Evaluation and Treatment [CONS] Routine 03/17/20 08:35 Consult to Case Management/Bander Operator [CONS] Routine Hospital Course: 03/18/20 * Alert and oriented x3 today * Denies having any complaints * Dr. Lomax consult plan: #1 begin regular Haldol 2 mg at bedtime to help with clarity of thought and elimination of any psychotic or paranoid symptoms. #2 he will continue to follow-up with the patient on an as-needed basis while she remains at [facility]. #3 he would recommend that she follow-up with outpatient psych when she is medically stabilized and discharged back to [facility]. * Urinalysis reveals: Nitrite negative 3+ leukocyte Estrace Urine WBC too numerous to count Urine bacteria not seen Urine culture preliminary: Yeast isolated * The patient is asymptomatic with this urinalysis. * WBC 3.79 Hemoglobin 10.2 Potassium 3.9 Anion gap 18.9 BUN 9 Creatinine 0.9 Magnesium 1.7 * Signs remained stable. * Refused her at bedtime dose of Eliquis last night * Had been refusing medications at the alf stating that she thought they were all poison. * Atrial fib management with amiodarone and Eliquis Plan * Start Haldol 2 mg at bedtime * Discontinue Zosyn * Start Diflucan 200 mg IV x1 dose will reevaluate in 3 days. * Magnesium 2 g IV today * rn medical inpatient services for discharge planning back to the alf * PT and OT to evaluate and treat * Dietitian consulting for adequate p.o. caloric needs * Eliquis for atrial fib and DVT prophylaxis * Patient is a DNR * Check labs and replace electrolytes as needed * Discontinue IV fluids Patient will remain admitted to [facility] status. [facility] will accept the patient back on March 22. Plan for discharge then. 03/19/20 * Alert and oriented x3 today * Denies having any complaints * Signs remained stable. * Had a good night, has not refused any medications * Atrial fib management with amiodarone and Eliquis * Potassium 3.6 Plan * rn medical inpatient services for discharge planning back to the alf * PT and OT to evaluate and treat * Dietitian consulting for adequate p.o. caloric needs * Eliquis for atrial fib and DVT prophylaxis * Patient is a DNR * Check labs and replace electrolytes as needed * Potassium 20meq po today. Patient will remain admitted to [facility] status. [facility] will accept the patient back on March 22. Plan for discharge then. 03/20/2020 The patient's urinalysis grew out Sandra not albicans and therefore antibiotics have been discontinued. The patient will be kept on her Eliquis for DVT prophylaxis. We will continue with a diabetic diet for her. She is currently on amiodarone for atrial fibrillation. Continue to monitor vital signs. Will consider CBC, CMP, on Sunday. Patient has been encouraged to ambulate. 03/21/2020 The patient is currently awaiting placement. She has been encouraged to continue ambulating. The patient's amiodarone will be continued. A recent urinalysis is likely not a clean-catch as her had been epithelial cells noted. Patient's urinalysis had grown Sandra not albicans. She does not need antibiotics at this time. We will continue to monitor her vital signs. 03/22/20 * Alert and oriented x3 today * She is very tired today. States she did not sleep well last night. * Signs remained stable. * Atrial fib management with amiodarone and Eliquis * Potassium 3.1 * Magnesium 1.7 Plan * rn medical inpatient services for discharge planning back to the al[facility] versus [facility] * Dr. Lomax to consult regarding further hallucinations * PT and OT to evaluate and treat * Dietitian consulting for adequate p.o. caloric needs * Eliquis for atrial fib and DVT prophylaxis * Patient is a DNR * Check labs and replace electrolytes as needed * Potassium 10meq IV x 6 doses today * Magnesium 2gm IV today Patient will remain admitted to [facility]. Discharge is on hold for now. Need to replace potassium and magnesium. Patient potentially being [facility] to [facility]. rn medical inpatient services to follow up regarding placement. 03/23/20 The patient will be discharged to [facility]. Outpatient psychiatry follow- up will be through their contracted psychiatrist. Follow-up with Dr. Cantu in 1 week. - Patient Instructions Diet: Regular Diet as Tolerated Activity: As Tolerated Other/Special Instructions: Discharge patient to [facility]. Continue with Haldol 2 mg at bedtime per Dr. Lomax consult. Follow-up with primary care provider in 1 week. The patient is to stop taking antibiotics that were previously prescribed for UTI, as the patient does not have a UTI. Continue all other home medications. - Discharge Plan *PRESCRIPTION DRUG MONITORING PROGRAM REVIEWED*: Not Applicable *COPY OF PRESCRIPTION DRUG MONITORING REPORT IN PATIENT JAIRO: Not Applicable Prescriptions/Med Rec: haloperidoL [Haldol] 2 mg PO BEDTIME #20 tablet Home Medications: Home Meds Amiodarone [Cordarone] 200 mg PO DAILY 03/16/20 [History] Apixaban [Eliquis] 2.5 mg PO BID 03/16/20 [History] LORazepam [Ativan ORAL Concentrate 1MG/0.5 ML U/D] 0.5 mg SL Q3HR PRN 03/16/20 [History] Potassium Chloride 20 mg PO TID 03/16/20 [History] metFORMIN [Glucophage] 500 mg PO BIDAC 03/16/20 [History] haloperidoL [Haldol] 2 mg PO BEDTIME #20 tablet 03/23/20 [Rx] Oxygen Therapy Mode: Room Air Patient Handouts: Sepsis, Diagnosis, Adult Forms: ED Department Discharge Referrals: Riley Pham MD [Primary Care Provider] - - Discharge Summary/Plan Comment DC Time >30 min.: No - General Info Date of Service: 03/23/20 Admission Dx/Problem (Free Text: Admission Diagnosis/Problem Admission Diagnosis/Problem Urinary tract infection Subjective Update: Slept well last night. Will be discharged to [facility] today. Functional Status: Reports: Pain Controlled, Tolerating Diet, Ambulating, Urinating - Review of Systems General: Reports: No Symptoms HEENT: Reports: No Symptoms Pulmonary: Reports: No Symptoms Cardiovascular: Reports: No Symptoms Gastrointestinal: Reports: No Symptoms Genitourinary: Reports: No Symptoms Musculoskeletal: Reports: No Symptoms Skin: Reports: No Symptoms Neurological: Reports: No Symptoms Psychiatric: Reports: No Symptoms - Patient Data Vitals - Most Recent: Last Vital Signs Temp 98.8 F 03/23/20 05:26 Pulse 77 03/23/20 05:26 Resp 16 03/23/20 00:20 BP 118/73 03/23/20 05:26 Pulse Ox 94 L 03/23/20 05:26 Weight - Most Recent: 52.208 kg I&O - Last 24 hours: Intake & Output 03/22/20 03/23/20 03/23/20 22:59 06:59 14:59 Intake Total 1035 200 Output Total 850 510 210 Balance 185 -310 -210 Lab Results - Last 24 hrs: Laboratory Results - last 24 hr 03/23/20 03/23/20 Range/Units 06:08 06:08 WBC 3.28 L (3.98-10.04) K/mm3 RBC 3.54 L (3.98-5.22) M/mm3 Hgb 10.0 L (11.2-15.7) gm/dl Hct 32.9 L (34.1-44.9) % MCV 92.9 (79.4-94.8) fl MCH 28.2 (25.6-32.2) pg MCHC 30.4 L (32.2-35.5) g/dl RDW Std Deviation 56.8 H (36.4-46.3) fL Plt Count 259 (182-369) K/mm3 MPV 8.8 L (9.4-12.3) fl Neut % (Auto) 49.7 (34.0-71.1) % Lymph % (Auto) 34.1 (19.3-51.7) % Payette % (Auto) 11.6 (4.7-12.5) % Eos % (Auto) 3.4 (0.7-5.8) Baso % (Auto) 0.9 (0.1-1.2) % Neut # (Auto) 1.63 (1.56-6.13) K/mm3 Lymph # (Auto) 1.12 L (1.18-3.74) K/mm3 [place] # (Auto) 0.38 H (0.24-0.36) K/mm3 Eos # (Auto) 0.11 (0.04-0.36) K/mm3 Baso # (Auto) 0.03 (0.01-0.08) K/mm3 Sodium 141 (136-145) mEq/L Potassium 3.5 (3.5-5.1) mEq/L Chloride 108 H (98-107) mEq/L Carbon Dioxide 25 (21-32) mEq/L Anion Gap 11.5 (5-15) BUN 6 L (7-18) mg/dL Creatinine 0.6 (0.55-1.02) mg/dL Est Cr Clr Drug Dosing 57.53 mL/min Estimated GFR (MDRD) > 60 (>60) mL/min BUN/Creatinine Ratio 10.0 L (14-18) Glucose 115 (83-115) mg/dL Calcium 8.0 L (8.5-10.1) mg/dL Magnesium 1.8 (1.8-2.4) mg/dl Total Bilirubin 0.5 (0.2-1.0) mg/dL AST 14 L (15-37) U/L ALT 16 (14-59) U/L Alkaline Phosphatase 42 L (46-116) U/L Total Protein 4.9 L (6.4-8.2) g/dl Albumin 2.1 L (3.4-5.0) g/dl Globulin 2.8 gm/dL Albumin/Globulin Ratio 0.8 L (1-2) NILSA Results - Last 24 hrs: Microbiology 03/21/20 05:15 Urine Culture - Preliminary Urine, Voided Yeast Isolated Med Orders - Current: Current Medications Amiodarone HCl (Cordarone) 200 mg PO DAILY [facility] Last Admin: 03/23/20 09:17 Dose: 200 mg Documented by: Apixaban (Eliquis) 2.5 mg PO BID [facility] Last Admin: 03/23/20 09:17 Dose: 2.5 mg Documented by: Haloperidol (Haldol) 2 mg PO BEDTIME [facility] Last Admin: 03/22/20 20:56 Dose: 2 mg Documented by: Sodium Chloride (Normal Saline) 1,000 mls @ 50 mls/hr IV ASDIRECTED [facility] Last Infusion: 03/22/20 15:22 Dose: 50 mls/hr Documented by: Discontinued Medications Haloperidol Lactate (Haldol) Confirm Administered Dose 5 mg .ROUTE .STK-MED ONE Stop: 03/16/20 22:48 Last Admin: 03/16/20 22:54 Dose: Not Given Documented by: Haloperidol Lactate (Haldol) 5 mg IM ONETIME STA Stop: 03/16/20 22:51 Last Admin: 03/16/20 22:53 Dose: 5 mg Documented by: Ceftriaxone Sodium 1 gm/ (Sodium Chloride) 100 mls @ 200 mls/hr IV ONETIME ONE Stop: 03/16/20 18:53 Last Admin: 03/16/20 19:12 Dose: 200 mls/hr Documented by: Piperacillin Sod/Tazobactam (Sod 4.5 gm/ Sodium Chloride) 100 mls @ 200 mls/hr IV ONETIME ONE Stop: 03/16/20 20:12 Last Admin: 03/16/20 20:00 Dose: 200 mls/hr Documented by: Sodium Chloride (Normal Saline) 1,000 mls @ 100 mls/hr IV ASDIRECTED [facility] Last Admin: 03/18/20 00:10 Dose: 100 mls/hr Documented by: Piperacillin Sod/Tazobactam (Sod 4.5 gm/ Sodium Chloride) 100 mls @ 25 mls/hr IV Q8H [facility] Last Admin: 03/18/20 13:09 Dose: Not Given Documented by: Magnesium Sulfate (Magnesium Sulfate In Water Premix) 2 gm in 50 mls @ 25 mls/hr IV ONETIME ONE Stop: 03/18/20 09:49 Last Admin: 03/18/20 14:04 Dose: 25 mls/hr Documented by: Fluconazole/Sodium Chloride (200 mg/ Premix) 100 mls @ 100 mls/hr IV ONETIME ONE Stop: 03/18/20 13:59 Last Admin: 03/18/20 12:48 Dose: 100 mls/hr Documented by: Potassium Chloride 10 meq/ (Premix) 100 mls @ 100 mls/hr IV ASDIRECTED [facility] Stop: 03/27/20 08:44 Last Infusion: 03/22/20 10:18 Dose: Infused Documented by: Magnesium Sulfate (Magnesium Sulfate In Water Premix) 2 gm in 50 mls @ 25 mls/hr IV ONETIME ONE Stop: 03/22/20 11:59 Last Admin: 03/22/20 10:15 Dose: 25 mls/hr Documented by: Potassium Chloride 10 meq/ (Premix) 100 mls @ 100 mls/hr IV Q1H [facility] Stop: 03/22/20 15:29 Last Admin: 03/22/20 17:25 Dose: 50 mls/hr Documented by: Potassium Chloride (Kcl 10 Meq In Water 100 Ml) Confirm Administered Dose 100 mls @ as directed .ROUTE .STK-MED ONE Stop: 03/22/20 10:11 Last Admin: 03/22/20 10:15 Dose: Not Given Documented by: Magnesium Sulfate (Magnesium Sulfate In Water Premix) 2 gm in 50 mls @ 25 mls/hr IV ONETIME ONE Stop: 03/23/20 08:45 Last Admin: 03/23/20 08:44 Dose: 25 mls/hr Documented by: Potassium Chloride (Klor-Con M20) 20 meq PO ONETIME ONE Stop: 03/19/20 09:30 Last Admin: 03/19/20 10:28 Dose: 20 meq Documented by: Potassium Chloride (Klor-Con M20) 20 meq PO ONETIME ONE Stop: 03/23/20 06:49 Last Admin: 03/23/20 09:17 Dose: 20 meq Documented by: Potassium Chloride (Klor-Con M20) 20 meq PO ONETIME ONE Stop: 03/23/20 09:16 Last Admin: 03/23/20 09:20 Dose: Not Given Documented by: - Exam Quality Assessment: Denies: Supplemental Oxygen General: Reports: Alert, Oriented, Cooperative HEENT: Reports: Pupils Equal, Pupils Reactive, Mucous Membr. Moist/Center Neck: Reports: Supple, Trachea Midline. Denies: Lymphadenopathy Lungs: Reports: Clear to Auscultation, Normal Respiratory Effort Cardiovascular: Reports: Regular Rate, No Murmurs, Irregular Rhythm GI/Abdominal Exam: Normal Bowel Sounds, Soft, Non-Tender, No Distention (Female) Exam: Deferred Rectal (Female) Exam: Deferred Back Exam: Reports: Normal Inspection, Full Range of Motion Extremities: Normal Inspection, Normal Range of Motion, Non-Tender, No Pedal Edema, Normal Capillary Refill Skin: Reports: Warm, Dry, Intact Neurological: Reports: No New Focal Deficit Psy/Mental Status: Reports: Alert, Normal Affect, Normal Mood <Enrique Feliz - Last Filed: 03/23/20 15:26> Discharge Summary - Referral to Home Health Primary Care Physician: Riley Pham MD - Discharge Diagnosis/Problem(s) (1) Dementia SNOMED Code(s): 93536810 ICD Code: F03.90 - UNSPECIFIED DEMENTIA WITHOUT BEHAVIORAL DISTURBANCE Status: Acute Priority: High Qualifiers: Dementia type: unspecified type Dementia behavioral disturbance: with behavioral disturbance Qualified Code(s): F03.91 - Unspecified dementia with behavioral disturbance (2) Urinary tract infection SNOMED Code(s): 20319835 ICD Code: N39.0 - URINARY TRACT INFECTION, SITE NOT SPECIFIED Status: Acute Priority: High Problem Details: Sandra species Qualifiers: Urinary tract infection type: site unspecified Hematuria presence: without hematuria Qualified Code(s): N39.0 - Urinary tract infection, site not specified (3) Diabetes SNOMED Code(s): 64966727 ICD Code: E11.9 - TYPE 2 DIABETES MELLITUS WITHOUT COMPLICATIONS Status: Chronic Priority: Medium Qualifiers: Diabetes mellitus type: type 2 Diabetes mellitus intermediate teacher insulin use: without residential use Diabetes mellitus complication status: without compl ication Qualified Code(s): E11.9 - Type 2 diabetes mellitus without complications (4) Hypertension SNOMED Code(s): 72627895 ICD Code: I10 - ESSENTIAL (PRIMARY) HYPERTENSION Status: Chronic Priority: Medium Qualifiers: Hypertension type: unspecified Qualified Code(s): I10 - Essential (primary) hypertension - Patient Summary/Data Consults: Consultations 03/17/20 08:34 OT Evaluation and Treatment [CONS] Routine PT Evaluation and Treatment [CONS] Routine 03/17/20 08:35 Consult to Case Management/Bander Operator [CONS] Routine Hospital Course: I have seen and examined the patient independent of nurse practitioner Redd Escobar and I have discussed the case with her. I have reviewed and agree with the assessment and plan as outlined for this patient by her. Please see orders. - Patient Data Vitals - Most Recent: Last Vital Signs Temp 37.1 C 03/23/20 05:26 Pulse 77 03/23/20 05:26 Resp 16 03/23/20 00:20 BP 118/73 03/23/20 05:26 Pulse Ox 94 L 03/23/20 05:26 I&O - Last 24 hours: Intake & Output 03/23/20 03/23/20 03/23/20 06:59 14:59 22:59 Intake Total 200 Output Total 510 210 Balance -310 -210 Lab Results - Last 24 hrs: Laboratory Results - last 24 hr 03/23/20 03/23/20 Range/Units 06:08 06:08 WBC 3.28 L (3.98-10.04) K/mm3 RBC 3.54 L (3.98-5.22) M/mm3 Hgb 10.0 L (11.2-15.7) gm/dl Hct 32.9 L (34.1-44.9) % MCV 92.9 (79.4-94.8) fl MCH 28.2 (25.6-32.2) pg MCHC 30.4 L (32.2-35.5) g/dl RDW Std Deviation 56.8 H (36.4-46.3) fL Plt Count 259 (182-369) K/mm3 MPV 8.8 L (9.4-12.3) fl Neut % (Auto) 49.7 (34.0-71.1) % Lymph % (Auto) 34.1 (19.3-51.7) % Payette % (Auto) 11.6 (4.7-12.5) % Eos % (Auto) 3.4 (0.7-5.8) Baso % (Auto) 0.9 (0.1-1.2) % Neut # (Auto) 1.63 (1.56-6.13) K/mm3 Lymph # (Auto) 1.12 L (1.18-3.74) K/mm3 [place] # (Auto) 0.38 H (0.24-0.36) K/mm3 Eos # (Auto) 0.11 (0.04-0.36) K/mm3 Baso # (Auto) 0.03 (0.01-0.08) K/mm3 Sodium 141 (136-145) mEq/L Potassium 3.5 (3.5-5.1) mEq/L Chloride 108 H (98-107) mEq/L Carbon Dioxide 25 (21-32) mEq/L Anion Gap 11.5 (5-15) BUN 6 L (7-18) mg/dL Creatinine 0.6 (0.55-1.02) mg/dL Est Cr Clr Drug Dosing 57.53 mL/min Estimated GFR (MDRD) > 60 (>60) mL/min BUN/Creatinine Ratio 10.0 L (14-18) Glucose 115 (83-115) mg/dL Calcium 8.0 L (8.5-10.1) mg/dL Magnesium 1.8 (1.8-2.4) mg/dl Total Bilirubin 0.5 (0.2-1.0) mg/dL AST 14 L (15-37) U/L ALT 16 (14-59) U/L Alkaline Phosphatase 42 L (46-116) U/L Total Protein 4.9 L (6.4-8.2) g/dl Albumin 2.1 L (3.4-5.0) g/dl Globulin 2.8 gm/dL Albumin/Globulin Ratio 0.8 L (1-2) NILSA Results - Last 24 hrs: Microbiology 03/21/20 05:15 Urine Culture - Preliminary Urine, Voided Yeast Isolated Med Orders - Current: Current Medications Discontinued Medications Amiodarone HCl (Cordarone) 200 mg PO DAILY [facility] Last Admin: 03/23/20 09:17 Dose: 200 mg Documented by: Apixaban (Eliquis) 2.5 mg PO BID [facility] Last Admin: 03/23/20 09:17 Dose: 2.5 mg Documented by: Haloperidol (Haldol) 2 mg PO BEDTIME [facility] Last Admin: 03/22/20 20:56 Dose: 2 mg Documented by: Haloperidol Lactate (Haldol) Confirm Administered Dose 5 mg .ROUTE .STK-MED ONE Stop: 03/16/20 22:48 Last Admin: 03/16/20 22:54 Dose: Not Given Documented by: Haloperidol Lactate (Haldol) 5 mg IM ONETIME STA Stop: 03/16/20 22:51 Last Admin: 03/16/20 22:53 Dose: 5 mg Documented by: Ceftriaxone Sodium 1 gm/ (Sodium Chloride) 100 mls @ 200 mls/hr IV ONETIME ONE Stop: 03/16/20 18:53 Last Admin: 03/16/20 19:12 Dose: 200 mls/hr Documented by: Piperacillin Sod/Tazobactam (Sod 4.5 gm/ Sodium Chloride) 100 mls @ 200 mls/hr IV ONETIME ONE Stop: 03/16/20 20:12 Last Admin: 03/16/20 20:00 Dose: 200 mls/hr Documented by: Sodium Chloride (Normal Saline) 1,000 mls @ 100 mls/hr IV ASDIRECTED [facility] Last Admin: 03/18/20 00:10 Dose: 100 mls/hr Documented by: Piperacillin Sod/Tazobactam (Sod 4.5 gm/ Sodium Chloride) 100 mls @ 25 mls/hr IV Q8H [facility] Last Admin: 03/18/20 13:09 Dose: Not Given Documented by: Magnesium Sulfate (Magnesium Sulfate In Water Premix) 2 gm in 50 mls @ 25 mls/hr IV ONETIME ONE Stop: 03/18/20 09:49 Last Admin: 03/18/20 14:04 Dose: 25 mls/hr Documented by: Fluconazole/Sodium Chloride (200 mg/ Premix) 100 mls @ 100 mls/hr IV ONETIME ONE Stop: 03/18/20 13:59 Last Admin: 03/18/20 12:48 Dose: 100 mls/hr Documented by: Potassium Chloride 10 meq/ (Premix) 100 mls @ 100 mls/hr IV ASDIRECTED [facility] Stop: 03/27/20 08:44 Last Infusion: 03/22/20 10:18 Dose: Infused Documented by: Sodium Chloride (Normal Saline) 1,000 mls @ 50 mls/hr IV ASDIRECTED [facility] Last Infusion: 03/22/20 15:22 Dose: 50 mls/hr Documented by: Magnesium Sulfate (Magnesium Sulfate In Water Premix) 2 gm in 50 mls @ 25 mls/hr IV ONETIME ONE Stop: 03/22/20 11:59 Last Admin: 03/22/20 10:15 Dose: 25 mls/hr Documented by: Potassium Chloride 10 meq/ (Premix) 100 mls @ 100 mls/hr IV Q1H [facility] Stop: 03/22/20 15:29 Last Admin: 03/22/20 17:25 Dose: 50 mls/hr Documented by: Potassium Chloride (Kcl 10 Meq In Water 100 Ml) Confirm Administered Dose 100 mls @ as directed .ROUTE .STK-MED ONE Stop: 03/22/20 10:11 Last Admin: 03/22/20 10:15 Dose: Not Given Documented by: Magnesium Sulfate (Magnesium Sulfate In Water Premix) 2 gm in 50 mls @ 25 mls/hr IV ONETIME ONE Stop: 03/23/20 08:45 Last Admin: 03/23/20 08:44 Dose: 25 mls/hr Documented by: Potassium Chloride (Klor-Con M20) 20 meq PO ONETIME ONE Stop: 03/19/20 09:30 Last Admin: 03/19/20 10:28 Dose: 20 meq Documented by: Potassium Chloride (Klor-Con M20) 20 meq PO ONETIME ONE Stop: 03/23/20 06:49 Last Admin: 03/23/20 09:17 Dose: 20 meq Documented by: Potassium Chloride (Klor-Con M20) 20 meq PO ONETIME ONE Stop: 03/23/20 09:16 Last Admin: 03/23/20 09:20 Dose: Not Given Documented by:
== END 2020-03-23 12:10 | disposition home or self-care (01) | DRG 690 ==
LOC: JD.ED 13:55 → JD.MS 21:02 → JD.OB 03-19 21:49 → JD.MS 03-23 12:09 → UNDODISIN 03-23 12:10
PROVIDERS: ADMIT Internal Medicine; ATTEND Internal Medicine
DX: N39.0 Urinary tract infection, site not specified (principal); F03.91 Unspecified dementia, unspecified severity, with behavioral disturbance; F29 Unspecified psychosis not due to a substance or known physiological condition; I48.91 Unspecified atrial fibrillation; I10 Essential (primary) hypertension; Z66 Do not resuscitate; E11.9 Type 2 diabetes mellitus without complications; F32.9 Major depressive disorder, single episode, unspecified; H54.7 Unspecified visual loss; E87.6 Hypokalemia; L89.159 Pressure ulcer of sacral region, unspecified stage; Z87.891 Personal history of nicotine dependence; Z79.84 Long term (current) use of oral hypoglycemic drugs; Z79.899 Other long term (current) drug therapy; Z87.440 Personal history of urinary (tract) infections; Z79.01 Long term (current) use of anticoagulants; B37.9 Candidiasis, unspecified; Z20.828 Contact with and (suspected) exposure to other viral communicable diseases
CPT/HCPCS: 36415; 70450; 71045; 80053; 81001; 83735; 85025; 85610; 87086; 87088; 87641; 93005; 96365; 96367; 97110-GP; 97162-GP; 97165-GO; 97535-GO; 99222; 99231; 99238; 99284; 99285-25; A9270-GY; J0696; J1450; J1630; J2543; J3475; J3480; J7030; J7050; Q3014; U0002

== ENCOUNTER 2021-10-06 12:14 | Inpatient (IN) | payer MEDICARE, BC ==
[2021-10-06] MEDS ORDERED: Sodium Chloride 0.9% 1,000 ML IV ONE (13:25)
[2021-10-06] MEDS ORDERED: Piperacillin/Tazobactam 4.5 GM in Sodium Chloride 0.9% 100 ML IV ONE (15:38)
[2021-10-06] MEDS ORDERED: Acetaminophen 325 MG Tab PO PRN (21:59)
[2021-10-06] MEDS ORDERED: NS + KCl 20mEq/L 1,000 ML IV SCH (22:15)
[2021-10-06] MEDS: Piperacillin/Tazobactam 4.5 GM in Sodium Chloride 0.9% 100 ML IV SCH (22:37)
[2021-10-07] MEDS: Piperacillin/Tazobactam 4.5 GM in Sodium Chloride 0.9% 100 ML IV SCH ×3 (06:05→21:00)
[2021-10-07] MEDS: Levothyroxine 50 MCG Tab PO SCH (07:13)
[2021-10-07] MEDS: Citalopram 20 MG Tab PO SCH ×2 (09:07→09:17)
[2021-10-07] MEDS: Amiodarone 200 MG Tab PO SCH (09:07)
[2021-10-07] MEDS: Apixaban 2.5 MG Tab PO SCH ×2 (09:07→20:38)
[2021-10-07] MEDS: Albuterol/Ipratropium 3.0-0.5 MG/3 ML Neb Soln NEB SCH ×3 (12:36→20:31)
[2021-10-07] MEDS ORDERED: Loperamide 2 MG Cap PO PRN (13:47)
[2021-10-07] MEDS: ARIPiprazole 10 MG Tab PO SCH (14:35)
[2021-10-07] MEDS ORDERED: Lactated Ringers 1,000 ML IV ONE ×2 (16:30→17:30)
[2021-10-07] MEDS: Insulin Lispro 100 Unit/ML 3 ML KwikPen SUBCUT SCH ×2 (17:56→20:57)
[2021-10-07] MEDS ORDERED: Lactated Ringers 800 ML IV ONE (18:06)
[2021-10-07] MEDS: Donepezil 10 MG Tab PO SCH (20:38)
[2021-10-08] MEDS: Albuterol/Ipratropium 3.0-0.5 MG/3 ML Neb Soln NEB SCH ×4 (05:52→20:04)
[2021-10-08] MEDS: Piperacillin/Tazobactam 4.5 GM in Sodium Chloride 0.9% 100 ML IV SCH ×3 (07:12→21:21)
[2021-10-08] MEDS: Levothyroxine 50 MCG Tab PO SCH (07:12)
[2021-10-08] MEDS: Insulin Lispro 100 Unit/ML 3 ML KwikPen SUBCUT SCH ×3 (08:27→18:39)
[2021-10-08] MEDS: ARIPiprazole 10 MG Tab PO SCH (08:29)
[2021-10-08] MEDS: Apixaban 2.5 MG Tab PO SCH ×2 (08:29→21:20)
[2021-10-08] MEDS: Citalopram 20 MG Tab PO SCH (08:29)
[2021-10-08] MEDS: Amiodarone 200 MG Tab PO SCH (08:29)
[2021-10-08] MEDS: Magnesium Oxide 400 MG Tab PO SCH (08:30)
[2021-10-08] MEDS: guaiFENesin 600 MG Tab.ER PO SCH ×2 (11:44→21:19)
[2021-10-08] MEDS: Donepezil 10 MG Tab PO SCH (21:19)
[2021-10-09] MEDS: Insulin Lispro 100 Unit/ML 3 ML KwikPen SUBCUT SCH ×5 (03:23→23:26)
[2021-10-09] MEDS: Albuterol/Ipratropium 3.0-0.5 MG/3 ML Neb Soln NEB SCH ×4 (05:57→20:34)
[2021-10-09] MEDS: Piperacillin/Tazobactam 4.5 GM in Sodium Chloride 0.9% 100 ML IV SCH ×3 (06:31→21:34)
[2021-10-09] MEDS: Levothyroxine 50 MCG Tab PO SCH (06:32)
[2021-10-09] MEDS: Magnesium Oxide 400 MG Tab PO SCH (09:35)
[2021-10-09] MEDS: ARIPiprazole 10 MG Tab PO SCH (09:35)
[2021-10-09] MEDS: Citalopram 20 MG Tab PO SCH (09:36)
[2021-10-09] MEDS: Apixaban 2.5 MG Tab PO SCH ×2 (09:36→21:35)
[2021-10-09] MEDS: Amiodarone 200 MG Tab PO SCH (09:36)
[2021-10-09] MEDS: guaiFENesin 600 MG Tab.ER PO SCH ×2 (09:36→21:35)
[2021-10-09] MEDS: Donepezil 10 MG Tab PO SCH (21:35)
[2021-10-10] MEDS: Piperacillin/Tazobactam 4.5 GM in Sodium Chloride 0.9% 100 ML IV SCH ×3 (05:53→20:20)
[2021-10-10] MEDS: Levothyroxine 50 MCG Tab PO SCH (05:54)
[2021-10-10] MEDS: Albuterol/Ipratropium 3.0-0.5 MG/3 ML Neb Soln NEB SCH ×4 (06:12→21:08)
[2021-10-10] MEDS: Magnesium Oxide 400 MG Tab PO SCH (09:35)
[2021-10-10] MEDS: Apixaban 2.5 MG Tab PO SCH ×2 (09:36→20:19)
[2021-10-10] MEDS: Amiodarone 200 MG Tab PO SCH (09:36)
[2021-10-10] MEDS: ARIPiprazole 10 MG Tab PO SCH (09:37)
[2021-10-10] MEDS: guaiFENesin 600 MG Tab.ER PO SCH ×2 (09:37→20:19)
[2021-10-10] MEDS: Citalopram 20 MG Tab PO SCH (09:37)
[2021-10-10] MEDS: Insulin Lispro 100 Unit/ML 3 ML KwikPen SUBCUT SCH ×3 (09:42→18:00)
[2021-10-10] MEDS ORDERED: Furosemide 20 MG/2 ML VIAL IVPUSH ONE (13:20)
[2021-10-10] MEDS ORDERED: Potassium Chloride 20 MEQ Tab.ER PO ONE (13:30)
[2021-10-10] MEDS ORDERED: Sodium Chloride 0.9% 100 ML ONE (16:39)
[2021-10-10] MEDS: Donepezil 10 MG Tab PO SCH (20:19)
[2021-10-11] MEDS: Levothyroxine 50 MCG Tab PO SCH (05:45)
[2021-10-11] MEDS: Piperacillin/Tazobactam 4.5 GM in Sodium Chloride 0.9% 100 ML IV SCH ×5 (05:46→21:57)
[2021-10-11] MEDS: Insulin Lispro 100 Unit/ML 3 ML KwikPen SUBCUT SCH ×5 (05:55→20:37)
[2021-10-11] MEDS: Albuterol/Ipratropium 3.0-0.5 MG/3 ML Neb Soln NEB SCH ×4 (06:22→20:48)
[2021-10-11] MEDS: Apixaban 2.5 MG Tab PO SCH ×2 (08:27→20:38)
[2021-10-11] MEDS: guaiFENesin 600 MG Tab.ER PO SCH ×2 (08:27→20:38)
[2021-10-11] MEDS: ARIPiprazole 10 MG Tab PO SCH (08:27)
[2021-10-11] MEDS: Citalopram 20 MG Tab PO SCH (08:27)
[2021-10-11] MEDS: Magnesium Oxide 400 MG Tab PO SCH (08:27)
[2021-10-11] MEDS: Amiodarone 200 MG Tab PO SCH (08:28)
[2021-10-11] MEDS: Potassium Chloride 20 MEQ Tab.ER PO SCH ×2 (11:14→20:38)
[2021-10-11] MEDS ORDERED: Sodium Chloride 0.9% 10 ML Syringe FLUSH PRN (11:28)
[2021-10-11] MEDS ORDERED: Iopamidol 755 Mg/ML 100 ML Bottle IVPUSH ONE (11:28)
[2021-10-11] MEDS ORDERED: Sodium Chloride 0.9% 100 ML IV SCH (11:30)
[2021-10-11] MEDS ORDERED: Furosemide 20 MG/2 ML VIAL IVPUSH ONE (12:38)
[2021-10-11] MEDS ORDERED: Potassium Chloride 20 MEQ Tab.ER PO ONE (13:00)
[2021-10-11] MEDS: Donepezil 10 MG Tab PO SCH (20:38)
[2021-10-12] MEDS: Piperacillin/Tazobactam 4.5 GM in Sodium Chloride 0.9% 100 ML IV SCH (06:14)
[2021-10-12] MEDS: Levothyroxine 50 MCG Tab PO SCH (06:14)
[2021-10-12] MEDS: Albuterol/Ipratropium 3.0-0.5 MG/3 ML Neb Soln NEB SCH ×2 (06:26→09:07)
[2021-10-12] MEDS: Insulin Lispro 100 Unit/ML 3 ML KwikPen SUBCUT SCH ×2 (08:24→12:33)
[2021-10-12] MEDS: ARIPiprazole 10 MG Tab PO SCH (08:42)
[2021-10-12] MEDS: Amiodarone 200 MG Tab PO SCH (08:42)
[2021-10-12] MEDS: Magnesium Oxide 400 MG Tab PO SCH (08:42)
[2021-10-12] MEDS: guaiFENesin 600 MG Tab.ER PO SCH (08:43)
[2021-10-12] MEDS: Citalopram 20 MG Tab PO SCH (08:43)
[2021-10-12] MEDS: Apixaban 2.5 MG Tab PO SCH (08:43)
== END 2021-10-12 15:40 | DRG 194 ==
LOC: JD.ED 12:14 → JD.MS 17:26
PROVIDERS: ADMIT Pediatrics; ATTEND Pediatrics
DX: J18.9 Pneumonia, unspecified organism (principal); R44.3 Hallucinations, unspecified; R50.9 Fever, unspecified; I48.21 Permanent atrial fibrillation; I48.91 Unspecified atrial fibrillation; I10 Essential (primary) hypertension; F02.81 Dementia in other diseases classified elsewhere, unspecified severity, with behavioral disturbance; R09.02 Hypoxemia; F03.91 Unspecified dementia, unspecified severity, with behavioral disturbance; Z66 Do not resuscitate; Z79.01 Long term (current) use of anticoagulants; Z20.822 Contact with and (suspected) exposure to COVID-19; E87.6 Hypokalemia; H54.7 Unspecified visual loss; E11.9 Type 2 diabetes mellitus without complications; F32.A Depression, unspecified; G30.1 Alzheimer's disease with late onset; Z87.891 Personal history of nicotine dependence; Z88.8 Allergy status to other drugs, medicaments and biological substances; Z79.84 Long term (current) use of oral hypoglycemic drugs; Z79.899 Other long term (current) drug therapy; Z87.440 Personal history of urinary (tract) infections
CPT/HCPCS: 36415; 71045; 80053; 81003; 83605; 85007; 85027; 87040 ×2; 87086; 96365; 99285; J2543; J7030; 71046; 71046-26; 71275; 71275-26; 80048; 81001; 82947; 83735; 84145; 85025; 86140; 87641; 92610-GN; 94640; 94667; 94668; 94761; 97110-GP; 97112-GP; 97116-GP; 97162-GP; 99284; A9270-GY; J1815; J1940; J3370; J3480; J3490; J7050; J7120; J7620-GY; Q9967; U0002